=== PATIENT | female | born 1960 | race Caucasian/White ===

== ENCOUNTER 2018-02-22 04:11 | Inpatient (IN) | payer OTHER, SELFPAY ==
[2018-02-22] VITALS (11 sets, daily range): BP systolic 84–122; BP diastolic 52–73; PULSE 83–108; RESP 16–23; TEMP 37.2–38.4; O2SAT 92–100; BMI 48.0; BMI 48.6; BMI 48.7
[2018-02-22 04:38] LABS: Absolute Lymphocyte Count 1.02 X10^3/ul (0.83-4.51); Absolute Neutrophil Count 12.2 X10^3/uL (2.0-7.7); Basophil# 0.02 X10^3/uL; Basophil% 0.1 % (0-1); Eosinophil# 0.06 X10^3/uL; Eosinophils% 0.4 % (0-5); Hematocrit 33.7 % (37-47); Hemoglobin 11.3 g/dl (12.0-15.0); Lymphocyte # 1.02 X10^3/ul (4.0); Lymphocyte % 7.2 % (19-41); Mean Corp Hgb Conc 33.5 g/gl (32-36); Mean Corpuscular Hgb 29.2 pg (27.0-32.0); Mean Corpuscular Volume 87.1 fL (81-99); Mean Platelet Vol. 10.5 fl (6.2-12.0); Monocyte# 0.85 X10^3/uL; Neutrophil % 86.1 % (47-70); POSITIVE COUNT NO; POSITIVE DIFFERENTIAL NO; POSITIVE MORPHOLOGY NO; Platelet Count 215 K/mm3 (150-450); RBC Distribution Width CV 14.2 % (11.6-14.6); Red Blood Count 3.87 M/mm3 (4.2-5.4); White Blood Count 14.2 K/mm3 (4.4-11.0)
[2018-02-22 04:43] LABS: International Normalized Ratio 1.1; Prothrombin Time (Protime)PT. 13.7 SECONDS (11.7-14.9)
[2018-02-22 04:51] LABS: ALB/GLOB Ratio 1.1 RATIO (0.9-2.4); AST(SGOT) 21 U/L (15-37); Alanine Aminotransfer ALT/SGPT 24 U/L (13-56); Albumin, Serum 3.6 g/dL (3.2-5.0); Alkaline Phosphatase 42 U/L (45-117); Anion Gap 8 (5-15); BUN 23 mg/dL (7-18); Calcium,Total 9.2 mg/dL (8.5-10.1); Chloride 101 mmol/L (98-107); Creatinine, Serum 0.85 mg/dL (0.55-1.02); EST Glomerular Filtration Rate 73 mL/min (>60); Est Glom Filt Rate - Afr Amer 89 mL/min (>60); Estimated Creatinine Clearance 69.18 ml/min; Globulin 3.3 g/dL (2.2-4.2); Glucose 113 mg/dL (74-106); Potassium 3.3 mmol/L (3.5-5.1); Protein, Total 6.9 g/dL (6.4-8.2); Sodium Level 138 mmol/L (136-145)
[2018-02-22] MEDS: 0.9% Normal Saline 1,000 ML 1000 ML IV ×3 (04:51→07:41)
[2018-02-22 05:03] LABS: Partial Thromboplast Time 28.3 Seconds (24.1-36.2)
--- NOTE | 2018-02-22 06:12 | CT_ITS ---
STUDY: CT ABDOMEN AND PELVIS WITH CONTRAST REASON FOR EXAM: Female, 57 years old. Bleeding from rectum times several months. Nausea, vomiting. RADIATION DOSAGE (If Supplied By Facility): CTDIvol = ( 18.33 ) mGy, DLP = ( 1475.02 ) mGycm TECHNIQUE: Transaxial 3.75 mm images were obtained from the dome of the diaphragm to the symphysis pubis without oral contrast. 100 ml of Isovue 300 contrast was administered. Sagittal and coronal images were reconstructed. There is obesity, the entirety of soft tissue is not imaged. Individualized dose optimization techniques were used for this CT. COMPARISON: None. FINDINGS: The visualized lung bases are unremarkable. The visualized portions of the heart are within normal limits. There is decreased attenuation of the enlarged liver consistent with steatosis. Liver measures more and 20 cm craniocaudal. Right hepatic 0.7 and 1 cm low-attenuation is too small to characterize image 26 and 47 series 2.. Normal gallbladder and extrahepatic biliary system. There is mild splenomegaly. There is accessory splenic tissue. Normal pancreas. Normal bilateral adrenal glands. Bilateral slightly heterogeneous nephrogram. Low attenuation changes within the right inferior renal cortex of 1 cm, 0.6 cm and the left inferior renal pole cortex, posterior left mid kidney 1.2 cm and upper pole 1.4 x 1.3 cm are indeterminate. Normal visualized stomach. Normal small intestine. Anal/distal rectal wall thickening. Perirectal 1.9 cm lymph node. Moderate amount of retained fecal material. Otherwise normal colon. The appendix is visualized and appears normal. Image 81-91 series 2. Normal abdominal aorta. Normal inferior vena cava. Normal retroperitoneum shotty nonenlarged retroperitoneal lymph nodes.. Normal urinary bladder. Uterus is to the left off pelvic midline and appears prominent in size, there is a suspicion for an anterior uterine body fibroid. Right inguinal lymphadenopathy 1.9 x 2.6 cm with additional smaller bilateral inguinal lymph nodes. There are degenerative changes of the visualized lumbar spine particularly along the facet joints. CT/Abdomen/Pelvis W IV Cont ONLY IMPRESSION: 1. Wall thickening and edema involving the anus and distal rectum with perirectal lymph nodes. This may be due to an inflammatory/infectious process, other a child she such as neoplasm is not excluded. 2. Right inguinal lymphadenopathy and bilateral inguinal lymphoid hyperplasia. 3. Hepatic steatosis, hepatomegaly, mild splenomegaly. 4. Low attenuation changes within the liver and kidneys are indeterminate. This can be verified with ultrasound. 5. Heterogeneous bilateral nephrograms may be due to a technical factors. No focal defects to suggest pyelonephritis detected. 6. Fibroid uterus. 7. Degenerative changes. Electronically Signed: Tangela Washburn MD at 7:33 EDT , Service support ,
[2018-02-22 06:27] LABS: Bacteria 0 SEEN /hpf (None Seen); Mucous, Urine 0 SEEN /hpf (<or=2+); White Blood Cells 0 SEEN /hpf (0-5)
[2018-02-22 06:46] LABS: Color, Urine Yellow (Yellow); Glucose, Dipstick Normal (Normal); Ketone-Dipstick Negative (Negative); Leukocyte Esterase-Dipstick 25 /ul (Negative); Nitrite-Dipstick Negative (Negative); Occult Blood-Urine 150 /ul (Negative); Protein-Dipstick 30 mg/dl (Negative); Specific Gravity, Urine 1.015 (1.002-1.030); Urine Bilirubin Dipstick Negative (Negative); Urine Clarity Clear (Clear); Urine Urobilinogen Normal (Normal)
[2018-02-22 06:53] LABS: Red Blood Cells-Urine 0-5 SEEN /hpf (0-5); Squamous Epithelial Cells - UA 5-10 SEEN /hpf (5-10)
[2018-02-22 06:58] LABS: Lactic Acid 1.5 mmol/L (0.4-2.0)
--- NOTE | 2018-02-22 07:24 | ED.DCSUM_ITS ---
- ER Visit Summary Date of Service: 02/22/18 Chief Complaint: Hemorrhoids History of Present Illness: The patient is a 57 F with hemorrhoids over the past month and a half. She has been having increasing pain and has been passing bright red blood and blood clots in the toilet with bowel movements. This has been getting worse. She saw a nurse practitioner at her primary care doctor's office who referred her to a GI nurse practitioner. She has not seen the GI nurse practitioner for hemorrhoids yet. She does not take blood thinners. She said she did have a colonoscopy within the past year which she says was unremarkable. She has a history of high blood pressure and high cholesterol. She has associated chills but no fever. Physical Examination: Blood pressure 94/57 and heart rate 100. Afebrile at 99. Patient appears uncomfortable but not toxic or in distress. Heart regular. Lungs clear. Abdomen soft and nontender. Chaperoned rectal exam shows multiple internal hemorrhoids. Minimal tenderness. Bright red blood is noted. No pus or mucus noted. Skin appears normal. Test Results: White count 14.2 and hemoglobin 11.3. Hemoglobin was 13 several months ago. Potassium 3.3, glucose 113, and BUN 23. Alk phos 42. Coags normal. Lactate 1.5 and urinalysis unremarkable. Emergency Department Course and Treatment: Patient received fluids. Her vitals did not change much. Her labs resulted and her white count was elevated, concerning for sepsis picture. I would not expect hemorrhoids to cause this. Will check a CT. I added on a urinalysis, lactate, and blood cultures. Cultures pending. Lactate 1.5. Urinalysis unremarkable. CT is pending. The oncoming doctor will check the CT results. If normal and the patient has normal vital signs and improve symptoms, she may go home. If equivocal or if she has continued abnormal vital signs or severe symptoms, she may benefit from hospital observation. Results pending. Plan was discussed with the patient. Treatment Plan: As above Disposition: Need further evaluation Impression: 1. Hemorrhoids 2. GI bleeding, likely secondary to hemorrhoids 2. SIRS criteria This note was generated with [employer]rics[employer] software. It may contain incorrect words, spelling, and punctuation that were not noted in review of the chart prior to signing ED Disposition - Plan for ED Patient: Chief Complaint: GI Bleed Referrals: Mehul Powers MD [Primary Care Provider] -
[2018-02-22] MEDS: fentaNYL 100 MCG/2 ML Ampul 25 MCG IV (07:41)
--- NOTE | 2018-02-22 07:51 | NURSING ---
DR MELANIE CHRISTINA
--- NOTE | 2018-02-22 07:55 | PCM.HP.STD ---
Problem List (1) Rectal bleed Status: Acute (2) Essential (primary) hypertension Status: Chronic (3) Dyslipidemia Status: Chronic (4) Gout Status: Chronic (5) BMI 45.0-49.9, adult Status: Chronic History of Present Illness Date of Admission: 02/22/18 Chief Complaint: Rectal bleed The patient is a 57 year old F with past medical history cigar for essential hypertension, dyslipidemia who presented with rectal pain. Patient has had pain for almost 6 weeks. Patient has also noticed intermittent fresh red blood in her stool patient reports having had a colonoscopy in August [address] [facility] which was negative for any mass. Did experience excruciating pain on the morning of admission subsequently made a decision to present to the ED. In the emergency department imaging studies obtained demonstrated Wall thickening and edema involving the anus and distal rectum with perirectal lymph nodes. An assessment of acute proctitis was made started on antibiotic therapy and admitted to regular nursing floor Past Medical History Past Medical History (Chronic Problems): Chronic Problems Essential (primary) hypertension (Chronic) Dyslipidemia (Chronic) Gout (Chronic) BMI 45.0-49.9, adult (Chronic) Allergies Penicillins Allergy (Verified 02/22/18 04:15) Rash Home Medications: Ambulatory Orders Medication Instructions Recorded Allopurinol [Zyloprim] 300 mg PO DAILY 02/22/18 Cholecalciferol (Vitamin D3) 3,000 unit PO DAILY 02/22/18 [Vitamin D3] Hydrochlorothiazide [Hctz] 25 mg PO DAILY 02/22/18 Lisinopril [Zestril] 40 mg PO BID 02/22/18 Simvastatin [Zocor] 20 mg PO QHS 02/22/18 Smoking Status: Never smoker - *Family History Maternal History Items: Cancer Review of Systems Constitutional: Denies: Anorexia, Chills, Fever, Night Sweats, Weight Change HEENT: Denies: Head Aches, Sinus Congestion, Sinus Drainage Cardiovascular: Denies: Chest Pain, Orthopnea, Palpitations, Paroxysmal Noc. Dyspnea Respiratory: Denies: Cough, Shortness of breath at rest, Shortness of breath upon exertion, Sputum production Gastrointestinal: Reports: Hematochezia. Denies: Abdominal Pain, Hematemesis Genitourinary: Denies: Dysuria, Frequency, Hematuria, Urgency Musculoskeletal: Denies: Joint Pain, Joint Tenderness Skin: Denies: Rash Neurological: Denies: Focal weakness, Numbness, Tingling Psychiatric: Denies: Homicidal Ideations, Suicidal Ideations Hematologic/ Lymphatic: Denies: Easy Bruising, Easy Bleeding VTE Information - Inpt Only VTE Present on Admission: No VTE Mechan Device Prophylaxis: Knee High KAELA Hose VTE Pharm Prophylaxis ordered?: No Reason prophylaxis not ordered:: Medical Contraindication Patient Problems: Active and Suspected Problems Rectal bleed (Acute) Objective: GENERAL: cooperative HEENT: Clear conjunctiva, NECK; supple, normal thyroid, CHEST: Diminished to auscultation bilaterally, HEART: Regular S1 S2, no audible murmurs ABDOMEN: soft, non-tender, normoactive bowel sounds, EXTREMITIES: No edema, no clubbing, no cyanosis. CLAY CASTER: Awake, no lateralizing signs. SKIN: No rash - Physical Exam Vital Signs Temp Pulse Resp BP Pulse Ox 99.0 F 108 H 23 H 122/52 H 93 02/22/18 04:13 02/22/18 06:10 02/22/18 06:10 02/22/18 06:10 02/22/18 06:10 Oxygen Delivery Method Room Air Weight: 135 kg Body Mass Index (BMI) 48.0 Laboratory Tests Past 24 Hrs 02/22/18 02/22/18 02/22/18 04:24 04:24 04:24 WBC 14.2 H RBC 3.87 L Hgb 11.3 L Hct 33.7 L MCV 87.1 MCH 29.2 MCHC 33.5 RDW 14.2 RDW Differential 44.0 H Plt Count 215 MPV 10.5 Immature Gran % (Auto) 0.200 Neut % (Auto) 86.1 H Lymph % (Auto) 7.2 L [place] % (Auto) 6.0 Eos % (Auto) 0.4 Baso % (Auto) 0.1 Absolute Neuts (auto) 12.2 H Absolute Lymphs (auto) 1.02 Total Counted Not Reportable PT 13.7 INR 1.1 APTT 28.3 Sodium 138 Potassium 3.3 L Chloride 101 Carbon Dioxide 29.0 Anion Gap 8 BUN 23 H Creatinine 0.85 Estim Creat Clear Calc 69.18 Est GFR (MDRD) Af Amer 89 Est GFR (MDRD) Non-Af 73 BUN/Creatinine Ratio 27.0 H Glucose 113 H Lactic Acid Calcium 9.2 Total Bilirubin 0.70 AST 21 ALT 24 Alkaline Phosphatase 42 L Total Protein 6.9 Albumin 3.6 Globulin 3.3 Albumin/Globulin Ratio 1.1 Urine Color Urine Clarity Urine pH Ur Specific [place] Urine Protein Urine Glucose (UA) Urine Ketones Urine Occult Blood Urine Nitrite Urine Bilirubin Urine Urobilinogen Ur Leukocyte Esterase Urine RBC Urine WBC Ur Squamous Epith Cells Urine Bacteria Urine Mucus 02/22/18 02/22/18 06:20 06:25 WBC RBC Hgb Hct MCV MCH MCHC RDW RDW Differential Plt Count MPV Immature Gran % (Auto) Neut % (Auto) Lymph % (Auto) [place] % (Auto) Eos % (Auto) Baso % (Auto) Absolute Neuts (auto) Absolute Lymphs (auto) Total Counted PT INR APTT Sodium Potassium Chloride Carbon Dioxide Anion Gap BUN Creatinine Estim Creat Clear Calc Est GFR (MDRD) Af Amer Est GFR (MDRD) Non-Af BUN/Creatinine Ratio Glucose Lactic Acid 1.5 Calcium Total Bilirubin AST ALT Alkaline Phosphatase Total Protein Albumin Globulin Albumin/Globulin Ratio Urine Color Yellow Urine Clarity Clear Urine pH 6.0 Ur Specific [place] 1.015 Urine Protein 30 H Urine Glucose (UA) Normal Urine Ketones Negative Urine Occult Blood 150 H Urine Nitrite Negative Urine Bilirubin Negative Urine Urobilinogen Normal Ur Leukocyte Esterase 25 H Urine RBC 0-5 SEEN Urine WBC 0 SEEN Ur Squamous Epith Cells 5-10 SEEN Urine Bacteria 0 SEEN Urine Mucus 0 SEEN Assessment/Plan Active and Suspected Problems Rectal bleed (Acute) Patient is a 57-year-old lady presented with rectal pain and intermittent bleeding in her stool. An assessment of acute proctitis was made started on antibiotic therapy admitted to regular nursing floor for further management 1. Acute proctitis patient started on Flagyl and ciprofloxacin admitted to regular nursing floor. In addition to the antibiotic therapy patient was placed on pain medication antinausea medication and consultation placed to general surgery patient did have colonoscopy in August at [facility] [place] into the patient was negative for any mass 2. Hypertension-blood pressure controlled, home medications continued with dose adjustment as needed 3. Gout symptoms controlled on allopurinol 4. Dyslipidemia-patient is on statin therapy, continued at home dose 5. Obesity with BMI of 48.7 lifestyle modification including weight loss advised 6. Hepatic steatosis possibly from patient underlying obesity instructed to follow-up with PCP for subsequent management including possible referral to see a environment coordinator 7. DVT prophylaxis avoided the use of chemoprophylaxis in view of patient active GI bleed Clinical Impression(s) from Imaging Studies Abdomen/Pelvis CT 02/22/18 06:12 IMPRESSION: 1. Wall thickening and edema involving the anus and distal rectum with perirectal lymph nodes. This may be due to an inflammatory/infectious process, other a child she such as neoplasm is not excluded. 2. Right inguinal lymphadenopathy and bilateral inguinal lymphoid hyperplasia. 3. Hepatic steatosis, hepatomegaly, mild splenomegaly. 4. Low attenuation changes within the liver and kidneys are indeterminate. This can be verified with ultrasound. 5. Heterogeneous bilateral nephrograms may be due to a technical factors. No focal defects to suggest pyelonephritis detected. 6. Fibroid uterus. 7. Degenerative changes. Electronically Signed: Tangela Washburn MD at 7:33 EDT , Service support , Code Visit Inpatient E&M: 17080 Init Hosp L3
--- NOTE | 2018-02-22 07:58 | NURSING ---
MED SURG RECTAL BLEED AND PAIN KITTOE
[2018-02-22] MEDS: Ciprofloxacin 400 MG/200 ML BAG 200 MG IV (09:03)
[2018-02-22] MEDS: 0.9% Normal Saline 1,000 ML 150 ML IV (10:48)
[2018-02-22] MEDS: Allopurinol 300 MG Tablet PO (11:38)
[2018-02-22] MEDS: Lisinopril 40 MG Tablet PO (11:38)
[2018-02-22] MEDS: hydroCHLOROthiazide 25 MG Tablet PO (11:38)
[2018-02-22 13:10] LABS: Internal QC Validated? YES +Cl - CLEAR BKGD; Pregnancy, Urine Negative Negative
--- NOTE | 2018-02-22 14:38 | PCM.CONS.B ---
- Consult Date of Consult: 02/22/18 - Reason for Consult Chief Complaint: perianal pain rectal bleeding History of Present Illness: 57 y/o obese WF presents with perianal pain. Patient has had pain for almost 6 weeks. Patient has also noticed intermittent fresh red blood in her stool patient reports having had a colonoscopy in August 2017 at [facility] which was negative for any mass. Did experience excruciating pain on the morning of admission subsequently made a decision to present to the ED. In the emergency department imaging studies obtained demonstrated wall thickening and edema involving the anus and distal rectum with perirectal lymph nodes. An assessment of acute proctitis was made started on antibiotic therapy and admitted to regular nursing floor I examined patient, and was concerned for perianal/perirectal abscess. Patient has family history of colon cancer, parent of colorectal cancer at age 48. Past Medical History: hypertension morbid obesity Past Surgical History: renal biopsy mandibular and nasal fracture Medications: allopurinol vitamin D HCTZ lisinopril zocor Allergies: penicillins Social history: TOB use denies Review of Systems: General - has had fevers Cardiovascular denies chest pain Pulmonary has shortness of breath with exertion, denies coughing up blood Gastrointestinal as per HPI, has been having rectal bleeding, has lifelong chronic constipation Neurological denies seizures Genitourinary denies burning with urination, denies blood in urine Hematological denies spontaneous/prolonged bleeding Skin denies open nonhealing wounds Musculoskeletal denies arthritis Endocrine denies diabetes, is morbidly obese Psychological denies hallucinations Physical examination: Vital signs Temp 99.5F RR 18 BP 120/61 General WD/WN WF in no apparent distress, alert and oriented, not septic appearing HEENT Normocephalic. EOM intact with sclera clear and no icterus noted. Neck is supple with no jugular venous distention noted. Trachea is midline. Lungs clear to auscultation. normal breath sounds. No rales/rhonchi/wheezing noted. No labored breathing noted, such as retractions. Heart normal S1 and S2 auscultated. No rubs/clicks/murmurs noted. Normal size and location by auscultation. Abdomen soft and benign and obese. Normal bowel sounds. Difficult to determine if any masses due to body habitus Extremities no calf tenderness noted. . Genitourinary/Rectal edema and inflammation of right side of perianal area, purulent and bloody discharge Skin normal skin integrity. Neurological no focal deficits noted Psychological normal affect, patient is calm and appropriate WBC 14.2K with left shift of differential Impression: suspect perianal/perirectal abscess Discussion/Plan: I have discussed the above with the patient. I have offered the patient the procedure of incision and drainage of perianal/perirectal abscess. I have explained the procedure to the patient. I have counseled the patient as to the risks of the procedure, including but not limited to: infection, bleeding, injury to any blood vessels/nerves, recurrence of disease by nature of disease, complications of anesthesia, postoperative pneumonia/cardiac problems/blood clots etc. the patient understands. Patient agrees to proceed. I have answered all questions to the patients satisfaction and the patient has no further questions.
--- NOTE | 2018-02-22 15:01 | CON.PCM_ITS ---
- Consult Date of Consult: 02/22/18 - Reason for Consult Chief Complaint: perianal pain rectal bleeding History of Present Illness: 57 y/o obese WF presents with perianal pain. Patient has had pain for almost 6 weeks. Patient has also noticed intermittent fresh red blood in her stool patient reports having had a colonoscopy in August 2017 at [facility] which was negative for any mass. Did experience excruciating pain on the morning of admission subsequently made a decision to present to the ED. In the emergency department imaging studies obtained demonstrated wall thickening and edema involving the anus and distal rectum with perirectal lymph nodes. An assessment of acute proctitis was made started on antibiotic therapy and admitted to regular nursing floor I examined patient, and was concerned for perianal/perirectal abscess. Patient has family history of colon cancer, parent of colorectal cancer at age 48. Past Medical History: hypertension morbid obesity Past Surgical History: renal biopsy mandibular and nasal fracture Medications: allopurinol vitamin D HCTZ lisinopril zocor Allergies: penicillins Social history: TOB use denies Review of Systems: General - has had fevers Cardiovascular denies chest pain Pulmonary has shortness of breath with exertion, denies coughing up blood Gastrointestinal as per HPI, has been having rectal bleeding, has lifelong chronic constipation Neurological denies seizures Genitourinary denies burning with urination, denies blood in urine Hematological denies spontaneous/prolonged bleeding Skin denies open nonhealing wounds Musculoskeletal denies arthritis Endocrine denies diabetes, is morbidly obese Psychological denies hallucinations Physical examination: Vital signs Temp 99.5F RR 18 BP 120/61 General WD/WN WF in no apparent distress, alert and oriented, not septic appearing HEENT Normocephalic. EOM intact with sclera clear and no icterus noted. Neck is supple with no jugular venous distention noted. Trachea is midline. Lungs clear to auscultation. normal breath sounds. No rales/rhonchi/ wheezing noted. No labored breathing noted, such as retractions. Heart normal S1 and S2 auscultated. No rubs/clicks/murmurs noted. Normal size and location by auscultation. Abdomen soft and benign and obese. Normal bowel sounds. Difficult to determine if any masses due to body habitus Extremities no calf tenderness noted. . Genitourinary/Rectal edema and inflammation of right side of perianal area, purulent and bloody discharge Skin normal skin integrity. Neurological no focal deficits noted Psychological normal affect, patient is calm and appropriate WBC 14.2K with left shift of differential Impression: suspect perianal/perirectal abscess Discussion/Plan: I have discussed the above with the patient. I have offered the patient the procedure of incision and drainage of perianal/ perirectal abscess. I have explained the procedure to the patient. I have counseled the patient as to the risks of the procedure, including but not limited to: infection, bleeding, injury to any blood vessels/nerves, recurrence of disease by nature of disease, complications of anesthesia, postoperative pneumonia/cardiac problems/blood clots etc. the patient understands. Patient agrees to proceed. I have answered all questions to the patient?s satisfaction and the patient has no further questions.
--- NOTE | 2018-02-22 15:15 | NURSING ---
called report to AC at this time.
--- NOTE | 2018-02-22 17:22 | PCM.IMDPSTOP ---
Immediate Post-Op Note Date of Procedure: 02/22/18 Primary Surgeon/Physician: Fannie Perkins chair spring assembler: NOT,DEFINED Pre-Operative Diagnosis: perianal/perirectal abscess Post-Operative Diagnosis: perforated rectum, rectal mass Surgery/Procedure Performed:: examination under anesthesia Description of Surgical Findings:: rectal perforation into side wall, right laterally, just proximal to anal canal with surrounding dense tissue/mass that extends posteriorly and proximally about 7 cm, hematoma in the side wall pocket at site of perforation Estimated Blood Loss: 30 Specimen's removed: none Type of Anesthesia:: General ASA Class: ASA3 Plus Emergency - Admit VTE Documentation VTE Present on Admission: Yes VTE Mechan Device Prophylaxis: SCD's
--- NOTE | 2018-02-22 17:25 | OP.PN_ITS ---
Immediate Post-Op Note Date of Procedure: 02/22/18 Primary Surgeon/Physician: Fannie Perkins epic cupid specialists: NOT,DEFINED Pre-Operative Diagnosis: perianal/perirectal abscess Post-Operative Diagnosis: perforated rectum, rectal mass Surgery/Procedure Performed:: examination under anesthesia Description of Surgical Findings:: rectal perforation into side wall, right laterally, just proximal to anal canal with surrounding dense tissue/mass that extends posteriorly and proximally about 7 cm, hematoma in the side wall pocket at site of perforation Estimated Blood Loss: 30 Specimen's removed: none Type of Anesthesia:: General ASA Class: ASA3 Plus Emergency - Admit VTE Documentation VTE Present on Admission: Yes VTE Mechan Device Prophylaxis: SCD's
--- NOTE | 2018-02-22 17:25 | PCM.OPRPT ---
Report of Operation Date of Procedure: 02/22/18 Pre-Operative Diagnosis: perianal/perirectal abscess Post-Operative Diagnosis: perforated rectum, rectal mass Surgery/Procedure Performed:: examination under anesthesia Description of Surgical Findings:: rectal perforation into side wall, right laterally, just proximal to anal canal with surrounding dense tissue/mass that extends posteriorly and proximally about 7 cm, hematoma in the side wall pocket at site of perforation academic guidance specialist: NOT,DEFINED Type of Anesthesia:: General Anesthesiologist: Morgan Carballo Specimen's removed: none Estimated Blood Loss (mL): 30 Fluids Replaced: see anesthesia note Description of Procedure: After informed consent was obtained, the patient was brought into the operating room. Appropriate time out protocol was followed. Patient was then placed under anesthesia. Patient was placed in the modified lithotomy position with appropriate padding to all pressure areas. The perineum was prepped with a betadyne surgical sterile skin preparation. Appropriate sterile surgical drapes were placed. Examination was done under anesthesia. Digital examination revealed rectal perforation, right laterally, just proximal to the anal canal. In this pocket, there was a large hematoma into the soft tissue. Surrounding the perforation, there was dense hard tissue, this extended posteriorly and then proximally about 7-8 cm but was not circumferential. This could not be visualized directly. No further examination was done, as it was determined that patient will require transfer to a larger medical facility. The patient was then extubated and brought to the Recovery Room in stable condition. - Complications none noted - Admit VTE Documentation VTE Present on Admission: Yes VTE Mechan Device Prophylaxis: SCD's
--- NOTE | 2018-02-22 18:14 | NURSING ---
called Devang to inform him that transport would be coming in 15-20 minutes to [facility] patient.
--- NOTE | 2018-02-22 18:39 | NURSING ---
called report to Michelle at [facility] at this time. Pt transferred off floor at [id number].
--- NOTE | 2018-02-23 07:07 | PCM.DC.SUM ---
Discharge Date and Diagnosis Date of Admission: 02/22/18 Date of Discharge: 02/22/18 - Primary Discharge Diagnosis Rectal mass with perforation - Secondary Discharge Diagnosis Chronic Problems Essential (primary) hypertension (Chronic) Dyslipidemia (Chronic) Gout (Chronic) BMI 45.0-49.9, adult (Chronic) Hospital Course and Treatment Imaging Results: Date of Procedure: 02/22/18 Pre-Operative Diagnosis: perianal/perirectal abscess Post-Operative Diagnosis: perforated rectum, rectal mass Surgery/Procedure Performed:: examination under anesthesia Description of Surgical Findings:: rectal perforation into side wall, right laterally, just proximal to anal canal with surrounding dense tissue/mass that extends posteriorly and proximally about 7 cm, hematoma in the side wall pocket at site of perforation Summary of Care Provided: Patient is a 57-year-old lady presented with rectal pain and intermittent bleeding in her stool. An assessment of acute proctitis was made started on antibiotic therapy admitted to regular nursing floor for further management 1. Acute proctitis patient started on Flagyl and ciprofloxacin admitted to regular nursing floor. In addition to the antibiotic therapy patient was placed on pain medication antinausea medication and consultation placed to general surgery patient did [facility] the patient was negative for any mass consultation was placed to Dr. Fannie Perkins with general surgery who did perform examination under anesthesia findings included; rectal perforation into side wall, right laterally, just proximal to anal canal with surrounding dense tissue/mass that extends posteriorly and proximally about 7 cm, hematoma in the side wall pocket at site of perforation based on above Dr. Gregorio Churchill for patient to be transferred to [facility] 2. Hypertension-blood pressure controlled, home medications continued with dose adjustment as needed 3. Gout symptoms controlled on allopurinol 4. Dyslipidemia-patient is on statin therapy, continued at home dose 5. Obesity with BMI of 48.7 lifestyle modification including weight loss advised 6. Hepatic steatosis possibly from patient underlying obesity instructed to follow-up with PCP for subsequent management including possible referral to see a residency director 7. DVT prophylaxis avoided the use of chemoprophylaxis in view of patient active GI bleed Home Medications: Medications to take at Discharge Allopurinol [Zyloprim] 300 mg PO DAILY 02/22/18 Cholecalciferol (Vitamin D3) [Vitamin D3] 3,000 unit PO DAILY 02/22/18 Hydrochlorothiazide [Hctz] 25 mg PO DAILY 02/22/18 Lisinopril [Zestril] 40 mg PO BID 02/22/18 Simvastatin [Zocor] 20 mg PO QHS 02/22/18 Primary Care Physician: Mehul Powers MD [Primary Care Provider] - Disposition: [facility] Minutes spent on discharge:: 45 Patient Condition:: Stable Medical Necessity - Tobacco Use Smoking Status: Never smoker Meaningful Use Info Meaningful Use Diagnoses (Choose all that apply): None applicable Code Visit OBSV E&M: 71651 Observ/hosp same date L3
== END 2018-02-22 18:42 | disposition short-term general hospital (02) | DRG 393 ==
LOC: ED 05:09 → MS3 08:04
PROVIDERS: Anesthesiology; Surgery; Admitting Provider Internal Medicine; Emergency Provider Emergency Medicine; Family Provider Internal Medicine; PCP Internal Medicine; Visit Provider Internal Medicine
PROC: 0DJDXZZ Inspection of Lower Intestinal Tract, External Approach (ICD-10-PCS; principal; 2018-02-22 16:15)
DX: K62.89 Other specified diseases of anus and rectum (principal); K63.1 Perforation of intestine (nontraumatic); K61.1 Rectal abscess; Z68.42 Body mass index [BMI] 45.0-49.9, adult; I10 Essential (primary) hypertension; K64.8 Other hemorrhoids; E78.5 Hyperlipidemia, unspecified; M10.9 Gout, unspecified; E66.9 Obesity, unspecified; Z71.3 Dietary counseling and surveillance; K76.0 Fatty (change of) liver, not elsewhere classified; R19.09 Other intra-abdominal and pelvic swelling, mass and lump
CPT/HCPCS: 74177; 80053; 81001; 81025; 83605; 85025; 85610; 85730; 87040; 99285; J7030; Q9967; J0744

== ENCOUNTER 2018-05-28 15:04 | Emergency (ER) | payer OTHER, SELFPAY ==
[2018-05-28 15:07] VITALS: BP 82/56; PULSE 109; RESP 18; TEMP 36.7; O2SAT 92; BMI 43.9
--- NOTE | 2018-05-28 15:40 | CT_ITS ---
STUDY: CT BRAIN WITHOUT CONTRAST REASON FOR EXAM: Female, 57 years old. Headache. Rectal melanoma. RADIATION DOSAGE (If Supplied By Facility): CTDIvol = ( 44.99 ) mGy, DLP = ( 762.36 ) mGycm TECHNIQUE: Transaxial CT imaging of the brain was performed without administration of intravenous contrast material. Individualized dose optimization techniques were used for this CT. COMPARISON: None. FINDINGS: Normal soft tissue structures. Normal calvarium. There are findings consistent with widespread hyperdense metastases throughout the brain. These are seen throughout the cerebral hemispheres bilaterally, and in both cerebellar hemispheres. The largest is in the left cerebellar hemisphere and measures 2.7 cm. It has very little if any significant mass effect or edema. In the cerebral hemispheres individual lesions measure from a few millimeters such as in the vertex of the left cerebral hemisphere, to as much as 1.6 cm in the right frontal lobe. Some of the larger lesions may have necrotic centers which are lower density. No significant mass effect is seen related to any of the lesions. There is no evidence for midline shift or herniation. The pedicles are symmetric. Midline is not shifted. No definite hemorrhage or acute infarction. Normal skull, orbits and sinuses. CT/Brain/Head without Contrast IMPRESSION: Very numerous hyperdense metastases throughout the brain consistent with metastatic melanoma. Little if any significant edema or mass effect. N.B. : The above information has been verbally conveyed by Lenard Boyd MD to Dr. Pavel Hernandez , Referring Physician, on 05/28/2018 17:17:28 (ET). Electronically Signed: Lenard Boyd MD at 16:59 EDT , Service support ,
--- NOTE | 2018-05-28 15:43 | ED.VIS.GEN ---
History of Present Illness Chief Complaint: Hypotension Informant: Patient, - - RN for hem-onc Onset: Yesterday Context: Gradual Onset Timing: Continuous Narrative: Patient has metastatic melanoma unknown stage, she finished a few months of chemotherapy couple months ago, and last week started immunotherapy. She is following with Dr. Austin with hematology-oncology in [place] with [facility], who called to discuss her case today prior to her arrival. Since yesterday, she has felt headaches either bifrontal or occipital, along with nausea, fatigue/generalized weakness, and has noticed her blood pressures low. Today they were 62/39, 74/50, and she is normally 121/78, or systolics down to 110 range. She is on blood pressure medication and it was decreased relatively recently. Today, she has felt lightheaded especially when standing, better when sitting or resting. She has had blurry vision that is worse when her lightheadedness is worse. Last night she felt very cold and had chills but describes no feeling of having a fever. She has had chronic tingling in her toes and states in the past week that is of actually been better. She denies any focal neurologic abnormalities in the last 2 days. No chest discomfort or shortness of breath although she has a minor nonproductive cough. She is having less bowel movements and taking in less food. No bowel movement yesterday or today, she normally goes daily. She is urinating less as well but states she is trying to drink plenty of water. She states she had the headaches this morning but now the headache is gone. She also states in the last couple days she has had small amounts of bright red blood per rectum, she has a history of that and by colonoscopy was diagnosed with metastatic melanoma to the rectum, so that is why she commonly has small amounts of blood, although it was gone until yesterday. She has a history of IgA nephropathy, her physicians want her blood pressure to remain under 130/80. Her oncology office also told us that they were potentially concerned about inflammation of the pituitary gland based on her symptoms of headache, nausea, blurry vision and associated with her immunotherapy. - Past Medical History (1) Metastatic melanoma Status: Chronic (2) IgA nephropathy Status: Chronic (3) Dyslipidemia Status: Chronic (4) Essential (primary) hypertension Status: Chronic Past Medical History - Allergies and Home Meds Allergies/Adverse Reactions: Allergies Penicillins Allergy (Verified 05/28/18 15:07) Rash Smoking Status: Never smoker - Family History Maternal Family History: Reports: Cancer Review of Systems All systems negative except as indicated General: Reports: Chills, Malaise Eyes: Reports: Blurred Vision - bilaterally Cardiovascular: Denies: Chest pain, Palpitations Respiratory: Reports: Cough. Denies: Dyspnea, Sputum, Orthopnea Gastrointestinal: Reports: Nausea, Hematochezia. Denies: Abdominal pain, Vomiting, Diarrhea, Melena Genitourinary: Denies: Dysuria, Hematuria, Frequency Musculoskeletal: Reports: Swelling - BLE, chronic, Extremity Pain - Both feet, recently improved. Denies: Neck pain, Back pain Skin: Denies: Rash Neurological: Reports: Headache, Parasthesia - Both feet, recently improved. Denies: Weakness Physical Exam Vital Signs/Narrative: Vital Signs Temp Pulse Resp BP Pulse Ox 05/28/18 15:07 98.1 F 109 H 18 82/56 L 92 Inital Vital Signs reviewed: Yes General: Well nourished, Well developed, Obese, - - nad Head: Normocephalic, Atraumatic Eyes: Perrl, EOMI ENT: Moist mucous membranes, No rhinorrhea. Negative for: Nasal congestion Neck: Supple, Nontender, No lymphadenopathy, No JVD Cardiovascular: Regular rate, Regular rhythm, No murmurs, Tachycardia Respiratory: No distress, CTA bilaterally, Chest nontender Abdomen: Soft, Nontender, Nondistended, Normal bowel sounds Back: Nontender, Normal Inspection. Negative for: CVA tenderness Extremities: Nontender, Edema - 1+ BLE, symmetric Skin: Normal color, No rash Neurological: Alert, Oriented x3, Cranial nerves II-XII grossly intact, Normal Strength, Normal Sensation Psychological: Normal affect Diagnostic/Tx/Re-eval Impressions Brain CT 05/28/18 15:40 IMPRESSION: Very numerous hyperdense metastases throughout the brain consistent with metastatic melanoma. Little if any significant edema or mass effect. N.B. : The above information has been verbally conveyed by Lenard Boyd MD to Dr. Pavel Hernandez , Referring Physician, on 05/28/2018 17:17:28 (ET). Electronically Signed: Lenard Boyd MD at 16:59 EDT , Service support , Chest X-Ray 05/28/18 16:30 IMPRESSION: Normal x-ray examination of the chest. Electronically Signed: Lenard Boyd MD at 17:00 EDT , Service support , 05/28/18 15:40 Brain/Head without Contrast [CT] Stat 05/28/18 16:30 Chest PA and Lateral [RAD] Stat Laboratory Results 05/28/18 05/28/18 05/28/18 Range/Units 15:55 15:55 15:55 WBC 3.6 L (4.4-11.0) K/mm3 RBC 4.07 L (4.2-5.4) M/mm3 Hgb 11.1 L (12.0-15.0) g/dl Hct 35.1 L (37-47) % MCV 86.2 (81-99) fL MCH 27.3 (27.0-32.0) pg MCHC 31.6 L (32-36) g/gl RDW 17.3 H (11.6-14.6) % RDW Differential 54.5 H (35.1-43.9) fl Plt Count 119 L (150-450) K/mm3 MPV 10.6 (6.2-12.0) fl Immature Gran % (Auto) 0.000 (0.0-0.9) % Neut % (Auto) 60.1 (47-70) % Lymph % (Auto) 30.5 (19-41) % [place] % (Auto) 6.9 (0-10) % Eos % (Auto) 1.1 (0-5) % Baso % (Auto) 1.4 H (0-1) % Absolute Neuts (auto) 2.2 (2.0-7.7) X10^3/uL Absolute Lymphs (auto) 1.10 (0.83-4.51) X10^3/ul Total Counted Not Reportable Sodium 137 (136-145) mmol/L Potassium 3.3 L (3.5-5.1) mmol/L Chloride 95 L (98-107) mmol/L Carbon Dioxide 30.0 (21.0-32.0) mmol/L Anion Gap 12 (5-15) BUN 33 H (7-18) mg/dL Creatinine 2.52 H (0.55-1.02) mg/dL Estim Creat Clear Calc 24.24 ml/min Est GFR (MDRD) Af Amer 25 L (>60) mL/min Est GFR (MDRD) Non-Af 21 L (>60) mL/min BUN/Creatinine Ratio 13.1 (10-20) RATIO Glucose 116 H (74-106) mg/dL Lactic Acid 1.9 (0.4-2.0) mmol/L Calcium 9.0 (8.5-10.1) mg/dL Total Bilirubin 0.30 (0.20-1.00) mg/dL AST 51 H (15-37) U/L ALT 57 H (13-56) U/L Alkaline Phosphatase 90 (45-117) U/L Troponin I < 0.015 (<0.045) ng/mL Total Protein 7.5 (6.4-8.2) g/dL Albumin 3.4 (3.2-5.0) g/dL Globulin 4.1 (2.2-4.2) g/dL Albumin/Globulin Ratio 0.8 L (0.9-2.4) RATIO TSH 1.41 (0.358-3.74) uIU/mL Urine Color (Yellow) Urine Clarity (Clear) Urine pH (5.0 - 8.0) Ur Specific [place] (1.002-1.030) Urine Protein (Negative) mg/dl Urine Glucose (UA) (Normal) mg/dl Urine Ketones (Negative) mg/dl Urine Occult Blood (Negative) /ul Urine Nitrite (Negative) Urine Bilirubin (Negative) mg/dL Urine Urobilinogen (Normal) mg/dl Ur Leukocyte Esterase (Negative) /ul Urine RBC (0-5) /hpf Urine WBC (0-5) /hpf Ur Squamous Epith Cells (5-10) /hpf Urine Bacteria (None Seen) /hpf Urine Mucus (<or=2+) /hpf 05/28/18 Range/Units 17:15 WBC (4.4-11.0) K/mm3 RBC (4.2-5.4) M/mm3 Hgb (12.0-15.0) g/dl Hct (37-47) % MCV (81-99) fL MCH (27.0-32.0) pg MCHC (32-36) g/gl RDW (11.6-14.6) % RDW Differential (35.1-43.9) fl Plt Count (150-450) K/mm3 MPV (6.2-12.0) fl Immature Gran % (Auto) (0.0-0.9) % Neut % (Auto) (47-70) % Lymph % (Auto) (19-41) % [place] % (Auto) (0-10) % Eos % (Auto) (0-5) % Baso % (Auto) (0-1) % Absolute Neuts (auto) (2.0-7.7) X10^3/uL Absolute Lymphs (auto) (0.83-4.51) X10^3/ul Total Counted Sodium (136-145) mmol/L Potassium (3.5-5.1) mmol/L Chloride (98-107) mmol/L Carbon Dioxide (21.0-32.0) mmol/L Anion Gap (5-15) BUN (7-18) mg/dL Creatinine (0.55-1.02) mg/dL Estim Creat Clear Calc ml/min Est GFR (MDRD) Af Amer (>60) mL/min Est GFR (MDRD) Non-Af (>60) mL/min BUN/Creatinine Ratio (10-20) RATIO Glucose (74-106) mg/dL Lactic Acid (0.4-2.0) mmol/L Calcium (8.5-10.1) mg/dL Total Bilirubin (0.20-1.00) mg/dL AST (15-37) U/L ALT (13-56) U/L Alkaline Phosphatase (45-117) U/L Troponin I (<0.045) ng/mL Total Protein (6.4-8.2) g/dL Albumin (3.2-5.0) g/dL Globulin (2.2-4.2) g/dL Albumin/Globulin Ratio (0.9-2.4) RATIO TSH (0.358-3.74) uIU/mL Urine Color Yellow (Yellow) Urine Clarity Turbid (Clear) Urine pH 5.0 (5.0 - 8.0) Ur Specific [place] 1.030 (1.002-1.030) Urine Protein 100 H (Negative) mg/dl Urine Glucose (UA) Normal (Normal) mg/dl Urine Ketones 5 H (Negative) mg/dl Urine Occult Blood 250 H (Negative) /ul Urine Nitrite Negative (Negative) Urine Bilirubin 3 H (Negative) mg/dL Urine Urobilinogen 1 H (Normal) mg/dl Ur Leukocyte Esterase 100 H (Negative) /ul Urine RBC 5-10 SEEN (0-5) /hpf Urine WBC 0-5 SEEN (0-5) /hpf Ur Squamous Epith Cells 10-25 SEEN (5-10) /hpf Urine Bacteria 4+ (None Seen) /hpf Urine Mucus 0 SEEN (<or=2+) /hpf - Rhythm Strip Rhythm Strip: Sinus Tach Rate: 108 Ectopy: None - EKG Initial EKG Interpretation: No Acute Injury Pattern, Sinus Tachycardia, - - nml axis and intervals - Medical Decision Making Labs show acute renal failure, lactate, TSH, white blood count all within normal limits. She is not especially anemic. No sign of a definite UTI or pneumonia. Blood pressure has been fairly stable although there were some numbers in the 80s, the majority of her numbers have been in the 90s and between 100-110. With orthostatics, lying she was in the 80s but with sitting and standing she was over 100 systolic. She was given slow IV fluids. Her pulse ox was around 90, however when I reevaluated her and she was resting/sleeping, her pulse ox was 98% on room air. Chest x-ray unremarkable. CT of the head shows multiple metastatic lesions everywhere without significant edema or mass-effect. I discussed with her oncologist, Dr. Austin, who states this is certainly worse than the 1 or 2 spots in the brain she had last time she was checked, and with her creatinine now 2.5 in context of her IgA nephropathy, recommends that she be transferred to [facility] where her oncology team and other specialists can further evaluate her and determine the best course. Discussed with the patient, she is amenable to this plan. Accepted by Dr. Kruger to [facility]. ED Disposition - Plan for ED Patient: Disposition: [facility] - Main Chief Complaint: Hypotension Diagnosis: Acute renal failure, IgA nephropathy, Malignant melanoma metastatic to brain
[2018-05-28 16:12] VITALS: BP 98/56; PULSE 111; RESP 25; O2SAT 95
[2018-05-28 16:16] LABS: Absolute Neutrophil Count 2.2 X10^3/uL (2.0-7.7); Basophil# 0.05 X10^3/uL; Basophil% 1.4 % (0-1); Eosinophil# 0.04 X10^3/uL; Eosinophils% 1.1 % (0-5); Hematocrit 35.1 % (37-47); Hemoglobin 11.1 g/dl (12.0-15.0); Lymphocyte % 30.5 % (19-41); Mean Corp Hgb Conc 31.6 g/gl (32-36); Mean Corpuscular Hgb 27.3 pg (27.0-32.0); Mean Corpuscular Volume 86.2 fL (81-99); Mean Platelet Vol. 10.6 fl (6.2-12.0); Monocyte# 0.25 X10^3/uL; Monocyte% 6.9 % (0-10); Neutrophil # 2.17 X10^3/uL (2.7-7.7); Neutrophil % 60.1 % (47-70); Platelet Count 119 K/mm3 (150-450); RBC Distribution Width CV 17.3 % (11.6-14.6); RBC Distribution Width SD 54.5 fl (35.1-43.9); Red Blood Count 4.07 M/mm3 (4.2-5.4); White Blood Count 3.6 K/mm3 (4.4-11.0)
[2018-05-28 16:17] LABS: POSITIVE COUNT NO; POSITIVE DIFFERENTIAL NO; POSITIVE MORPHOLOGY NO
--- NOTE | 2018-05-28 16:30 | RAD_ITS ---
STUDY: X-RAY CHEST REASON FOR EXAM: Female, 57 years old. Hypotension and dizziness. Melanoma. TECHNIQUE: Frontal and lateral views of the chest. COMPARISON: None. FINDINGS: The lungs are clear and expanded. There is no demonstrated pleural abnormality. Normal size heart. Normal mediastinum and cyn. Normal visualized pulmonary arteries. Normal visualized aortic arch and descending thoracic aorta. Normal visualized thoracic spine. Normal visualized ribs, clavicles, and shoulders. There is no demonstrated abnormality of the visualized soft tissue structures of the upper abdomen. RAD/Chest PA and Lateral IMPRESSION: Normal x-ray examination of the chest. Electronically Signed: Lenard Boyd MD at 17:00 EDT , Service support ,
[2018-05-28 16:38] LABS: ALB/GLOB Ratio 0.8 RATIO (0.9-2.4); AST(SGOT) 51 U/L (15-37); Alanine Aminotransfer ALT/SGPT 57 U/L (13-56); Albumin, Serum 3.4 g/dL (3.2-5.0); Alkaline Phosphatase 90 U/L (45-117); Anion Gap 12 (5-15); BUN 33 mg/dL (7-18); BUN/Creat Ratio 13.1 RATIO (10-20); Chloride 95 mmol/L (98-107); Creatinine, Serum 2.52 mg/dL (0.55-1.02); EST Glomerular Filtration Rate 21 mL/min (>60); Est Glom Filt Rate - Afr Amer 25 mL/min (>60); Estimated Creatinine Clearance 24.24 ml/min; Globulin 4.1 g/dL (2.2-4.2); Glucose 116 mg/dL (74-106); Potassium 3.3 mmol/L (3.5-5.1); Protein, Total 7.5 g/dL (6.4-8.2); Sodium Level 137 mmol/L (136-145); Thyroid Stim Hormone (TSH) 1.41 uIU/mL (0.358-3.74)
[2018-05-28 16:56] VITALS: BP 100/67; BP 105/67; BP 87/54; PULSE 102; PULSE 116; PULSE 127
[2018-05-28 17:00] LABS: Lactic Acid 1.9 mmol/L (0.4-2.0)
[2018-05-28 17:14] VITALS: BP 94/54; PULSE 103; RESP 23; O2SAT 90
[2018-05-28 17:23] LABS: Mucous, Urine 0 SEEN /hpf (<or=2+)
[2018-05-28 17:30] LABS: Color, Urine Yellow (Yellow); Glucose, Dipstick Normal (Normal); Ketone-Dipstick 5 mg/dl (Negative); Leukocyte Esterase-Dipstick 100 /ul (Negative); Nitrite-Dipstick Negative (Negative); Occult Blood-Urine 250 /ul (Negative); Protein-Dipstick 100 mg/dl (Negative); Urine Clarity Turbid (Clear); Urine Urobilinogen 1 mg/dl (Normal)
[2018-05-28 17:40] LABS: Urine Bilirubin Dipstick 3 mg/dL (Negative)
[2018-05-28 17:43] LABS: White Blood Cells 0-5 SEEN /hpf (0-5)
[2018-05-28 17:44] LABS: Bacteria 4+ /hpf (None Seen); Red Blood Cells-Urine 5-10 SEEN /hpf (0-5); Squamous Epithelial Cells - UA 10-25 SEEN /hpf (5-10)
[2018-05-28 18:12] VITALS: BP 111/63; PULSE 105; RESP 25; O2SAT 90
[2018-05-28 19:30] VITALS: BP 102/66; PULSE 106; RESP 25; O2SAT 94
--- NOTE | 2018-05-28 20:40 | ED.RN ---
REPORT TO [facility]. PT SKIN P/W/D, RESP EVEN AND UNLABORED, PT A&O X 3, NO DISTRESS NOTED. PT OUT OF ED FOR TRANSPORT TO [facility].
== END 2018-05-28 20:40 | disposition short-term general hospital (02) ==
PROVIDERS: Emergency Provider Emergency Medicine; Family Provider Internal Medicine; PCP Internal Medicine
DX: N02.8 Recurrent and persistent hematuria with other morphologic changes (principal); N17.9 Acute kidney failure, unspecified; C79.9 Secondary malignant neoplasm of unspecified site; C79.31 Secondary malignant neoplasm of brain; E78.5 Hyperlipidemia, unspecified; I10 Essential (primary) hypertension; E66.9 Obesity, unspecified; Z79.899 Other long term (current) drug therapy
CPT/HCPCS: 70450; 71046; 80053; 81001; 83605; 84443; 84484; 85025; 87040; 93005; 99285; A4216

== ENCOUNTER 2018-06-07 19:47 | Inpatient (IN) | payer OTHER, SELFPAY ==
[2018-06-07 19:49] VITALS: BP 132/96; PULSE 87; RESP 20; TEMP 36.3; O2SAT 90; BMI 30.5
[2018-06-07] MEDS: 0.9% Normal Saline 1,000 ML 1000 ML IV (21:29)
[2018-06-07 21:34] VITALS: BP 120/85; PULSE 82; RESP 17; O2SAT 100
[2018-06-07] MEDS: Ondansetron 4 MG/2 ML Vial IV (21:34)
[2018-06-07] MEDS: Morphine 4 MG/ML Syringe IV (21:34)
[2018-06-07 21:39] LABS: Absolute Lymphocyte Count 1.06 X10^3/ul (0.83-4.51); Absolute Neutrophil Count 4.6 X10^3/uL (2.0-7.7); Basophil# 0.01 X10^3/uL; Basophil% 0.2 % (0-1); Hematocrit 35.4 % (37-47); Hemoglobin 11.1 g/dl (12.0-15.0); Lymphocyte # 1.06 X10^3/ul (4.0); Lymphocyte % 16.5 % (19-41); Mean Corp Hgb Conc 31.4 g/gl (32-36); Mean Corpuscular Hgb 27.1 pg (27.0-32.0); Mean Corpuscular Volume 86.3 fL (81-99); Mean Platelet Vol. 9.3 fl (6.2-12.0); Monocyte# 0.74 X10^3/uL; Monocyte% 11.5 % (0-10); Neutrophil # 4.59 X10^3/uL (2.7-7.7); Neutrophil % 71.2 % (47-70); Platelet Count 278 K/mm3 (150-450); RBC Distribution Width CV 18.5 % (11.6-14.6); White Blood Count 6.4 K/mm3 (4.4-11.0)
[2018-06-07 21:41] LABS: POSITIVE COUNT NO; POSITIVE DIFFERENTIAL NO; POSITIVE MORPHOLOGY NO
[2018-06-07 21:55] LABS: ALB/GLOB Ratio 0.6 RATIO (0.9-2.4); AST(SGOT) 36 U/L (15-37); Alanine Aminotransfer ALT/SGPT 58 U/L (13-56); Albumin, Serum 3.1 g/dL (3.2-5.0); Alkaline Phosphatase 81 U/L (45-117); Anion Gap 5 (5-15); BUN 26 mg/dL (7-18); BUN/Creat Ratio 29.3 RATIO (10-20); Calcium,Total 9.9 mg/dL (8.5-10.1); Chloride 99 mmol/L (98-107); Creatinine, Serum 0.89 mg/dL (0.55-1.02); EST Glomerular Filtration Rate 70 mL/min (>60); Est Glom Filt Rate - Afr Amer 84 mL/min (>60); Estimated Creatinine Clearance 99.39 ml/min; Globulin 4.9 g/dL (2.2-4.2); Glucose 116 mg/dL (74-106); Lipase 339 U/L (73-393); Potassium 3.8 mmol/L (3.5-5.1); Sodium Level 139 mmol/L (136-145)
[2018-06-07 23:02] LABS: Bacteria 0 SEEN /hpf (None Seen)
[2018-06-07 23:06] LABS: Color, Urine Yellow (Yellow); Glucose, Dipstick Normal (Normal); Ketone-Dipstick Negative (Negative); Leukocyte Esterase-Dipstick Negative /ul (Negative); Nitrite-Dipstick Negative (Negative); Occult Blood-Urine 50 /ul (Negative); Protein-Dipstick 100 mg/dl (Negative); Urine Bilirubin Dipstick Negative (Negative); Urine Clarity Cloudy (Clear); Urine Urobilinogen Normal (Normal)
[2018-06-07 23:11] LABS: Squamous Epithelial Cells - UA 0-5 SEEN /hpf (5-10)
[2018-06-07 23:12] LABS: Mucous, Urine 2+ /hpf (<or=2+)
[2018-06-07 23:14] LABS: Fine Granular Cast- Urine 0-5 SEEN /lpf (0-5); Hyaline Cast 5-10 SEEN /lpf (0-5)
--- NOTE | 2018-06-07 23:14 | ED.VISSUMM ---
- ER Visit Summary Date of Service: 06/07/18 Chief Complaint: Nausea and vomiting History of Present Illness: The patient is a 57 F presenting with nausea, vomiting, and diarrhea which started today. She denies blood in her stool or emesis. She also complains of generalized weakness. Denies fever. She has diffuse abdominal pain. She has a history of metastatic rectal cancer. Her last chemotherapy was 3 weeks ago. She has not had surgery or radiation. Physical Examination: Vitals are stable. Patient is afebrile. Alert no acute distress. HEENT exam dry mucous membranes Neck is supple. Lungs are clear and equal bilaterally. Heart is regular rate and rhythm. Abdomen is soft mild diffuse tenderness with no rebound or guarding Extremities are unremarkable. Skin is warm and dry. No focal neurologic deficit. Remainder of exam is unremarkable. Emergency Department Course and Treatment: Patient is given IV fluids, morphine, Zofran. CBC shows a hemoglobin 11.1. Chemistries show glucose 116, BUN 26. Lipase 339. CT abdomen and pelvis shows there is diffuse enlargement of the pancreas with yoana-pancreatic edema suggesting acute pancreatitis. Multiple hypoattenuation lesions are seen in liver have nonspecific appearance largest measures approximately 4 cm suggesting metastatic lesions. There is soft tissue mass to the right of the rectum measures 3 cm in diameter may represent a rectal neoplasm. Patient has some improvement of her pain but continues to complain of nausea. She does not feel well enough to go home. She does not want to be transferred to [facility] at this time. Discussed with the hospitalist for observation. Disposition: Observation Impression: Pancreatitis, metastatic rectal cancer This note was generated with [employer] dictation software. It may contain incorrect words, spelling, and punctuation that were not noted in review of the chart prior to signing ED Disposition - Plan for ED Patient: Chief Complaint: Nausea/Vomiting Referrals: Mehul Powers MD [Primary Care Provider] -
[2018-06-07 23:16] LABS: Red Blood Cells-Urine 0-5 SEEN /hpf (0-5); White Blood Cells 0-5 SEEN /hpf (0-5)
--- NOTE | 2018-06-07 23:18 | ED.DCSUM_ITS ---
- ER Visit Summary Date of Service: 06/07/18 Chief Complaint: Nausea and vomiting History of Present Illness: The patient is a 57 F presenting with nausea, vomiting, and diarrhea which started today. She denies blood in her stool or emesis. She also complains of generalized weakness. Denies fever. She has diffuse abdominal pain. She has a history of metastatic rectal cancer. Her last chemotherapy was 3 weeks ago. She has not had surgery or radiation. Physical Examination: Vitals are stable. Patient is afebrile. Alert no acute distress. HEENT exam dry mucous membranes Neck is supple. Lungs are clear and equal bilaterally. Heart is regular rate and rhythm. Abdomen is soft mild diffuse tenderness with no rebound or guarding Extremities are unremarkable. Skin is warm and dry. No focal neurologic deficit. Remainder of exam is unremarkable. Emergency Department Course and Treatment: Patient is given IV fluids, morphine , Zofran. CBC shows a hemoglobin 11.1. Chemistries show glucose 116, BUN 26. Lipase 339. CT abdomen and pelvis shows there is diffuse enlargement of the pancreas with yoana-pancreatic edema suggesting acute pancreatitis. Multiple hypoattenuation lesions are seen in liver have nonspecific appearance largest measures approximately 4 cm suggesting metastatic lesions. There is soft tissue mass to the right of the rectum measures 3 cm in diameter may represent a rectal neoplasm. Patient has some improvement of her pain but continues to complain of nausea. She does not feel well enough to go home. She does not want to be transferred to [facility] at this time. Discussed with the hospitalist for observation. Disposition: Observation Impression: Pancreatitis, metastatic rectal cancer This note was generated with [employer] dictation software. It may contain incorrect words, spelling, and punctuation that were not noted in review of the chart prior to signing ED Disposition - Plan for ED Patient: Chief Complaint: Nausea/Vomiting Referrals: Mehul Powers MD [Primary Care Provider] -
[2018-06-07 23:34] VITALS: BP 99/77; PULSE 80; RESP 13; O2SAT 98
--- NOTE | 2018-06-08 00:11 | PCM.HP.STD ---
Problem List (1) Rectal carcinoma Status: Acute (2) Liver metastases Status: Acute (3) Brain metastases Status: Acute (4) Essential (primary) hypertension Status: Chronic (5) Dyslipidemia Status: Chronic (6) Gout Status: Chronic History of Present Illness Date of Admission: 06/08/18 Chief Complaint: abdominal pain with nausea The patient is a 57 year old female patient with a significant history of rectal cancer with metastatic disease to liver and brain. She was diagnosed in late February and has had two treatments of chemotherapy the last one being 2 weeks ago. She has had poor appetite and weakness. She has had worsening abdominal pain today and came to ER for further evaluation. CT scan reveals a 3 cm rectal tumor with liver metastatic disease along with inflammation around her pancreas. Lipase is within normal limits. She does not want to go to [facility] for her care unless absolutely necessary. She prefers to stay here for treatment and would like to have a local oncologist manage her care. Past Medical History Past Medical History (Chronic Problems): Chronic Problems Essential (primary) hypertension (Chronic) Dyslipidemia (Chronic) Gout (Chronic) BMI 45.0-49.9, adult (Chronic) Metastatic melanoma (Chronic) IgA nephropathy (Chronic) Allergies amoxicillin Allergy (Verified 06/07/18 20:11) Nausea Penicillins Allergy (Verified 06/07/18 19:48) Rash Home Medications: Ambulatory Orders Medication Instructions Recorded Allopurinol [Zyloprim] 300 mg PO DAILY 02/22/18 Cholecalciferol (Vitamin D3) 3,000 unit PO DAILY 02/22/18 [Vitamin D3] Hydrochlorothiazide [Hctz] 25 mg PO DAILY 02/22/18 Lisinopril [Zestril] 20 mg PO BID 02/22/18 Simvastatin [Zocor] 20 mg PO QHS 02/22/18 Docusate Sodium [Colace] 200 mg PO QHS 05/28/18 Gabapentin [Neurontin] 900 mg PO QHS 05/28/18 Magnesium Oxide [Mag-Ox 400] 400 mg PO BID 05/28/18 Multivitamin [Daily Multiple 1 each PO DAILY 05/28/18 Vitamin] Ondansetron [Zofran] 8 mg PO Q6H PRN PRN 05/28/18 Smoking Status: Never smoker - *Family History Maternal History Items: Cancer Review of Systems Constitutional: Reports: Malaise, Weakness, Fatigue. Denies: Chills, Fever, Weight Change HEENT: Denies: Head Aches, Sinus Congestion, Sinus Drainage Cardiovascular: Denies: Chest Pain, Palpitations Respiratory: Denies: Cough, Shortness of breath at rest, Sputum production Gastrointestinal: Reports: Abdominal Pain, Nausea, Vomiting Genitourinary: Denies: Dysuria Musculoskeletal: Denies: Joint Pain, Joint Tenderness Skin: Denies: Rash, Wounds Neurological: Denies: Numbness, Tingling, Focal weakness Psychiatric: Denies: Anxiety, Depression, Homicidal Ideations, Suicidal Ideations Hematologic/ Lymphatic: Denies: Easy Bruising, Easy Bleeding VTE Information - Inpt Only VTE Present on Admission: No VTE Mechan Device Prophylaxis: SCD's VTE Pharm Prophylaxis ordered?: No Patient Problems: Active and Suspected Problems Rectal carcinoma (Acute) Liver metastases (Acute) Brain metastases (Acute) - Physical Exam General: Alert, Oriented x3, Cooperative HEENT: Atraumatic, Normocephalic Neck: Supple Lungs: Clear to auscultation, Normal air movement Cardiovascular: Regular rate, Normal S1, Normal S2, No murmurs Abdomen: Bowel Sounds Present, Distended, Obese, Tender Extremities: No edema, Capillary Refill Less than 3 Seconds Skin: No rashes Musculoskeletal: No Tenderness to Palpation of Joints or Extremities Neurological: Neuro grossly intact Psych/Mental Status: Normal Affect, Appropriate Vital Signs Temp Pulse Resp BP Pulse Ox 97.4 F L 80 13 99/77 98 06/07/18 19:49 06/07/18 23:34 06/07/18 23:34 06/07/18 23:34 06/07/18 23:34 Assessment/Plan All Active Problems Rectal bleed (Acute) Rectal carcinoma (Acute) Liver metastases (Acute) Brain metastases (Acute) Chronic Problems Essential (primary) hypertension (Chronic) Dyslipidemia (Chronic) Gout (Chronic) BMI 45.0-49.9, adult (Chronic) Metastatic melanoma (Chronic) IgA nephropathy (Chronic) Plan - admit to general medical floor - dilaudid 1mg IV q 2 hrs prn pain - consult Dr. Jeuss in am - IV d51/2 NS with 20 meq KCL at 100 cc/ hour - cbc , cmp, lipase in am - scds for dvt prophylaxis - NPO for now Code Visit Inpatient E&M: 82039 Init Hosp L3
[2018-06-08 00:44] VITALS: BMI 43.1
[2018-06-08 00:45] VITALS: BP 121/90; PULSE 86; RESP 16; TEMP 36.3; O2SAT 99
[2018-06-08 00:53] VITALS: BMI 43.2
[2018-06-08 05:43] LABS: Absolute Lymphocyte Count 1.31 X10^3/ul (0.83-4.51); Absolute Neutrophil Count 3.5 X10^3/uL (2.0-7.7); Basophil# 0.01 X10^3/uL; Basophil% 0.2 % (0-1); Eosinophil# 0.01 X10^3/uL; Eosinophils% 0.2 % (0-5); Hematocrit 31.3 % (37-47); Hemoglobin 9.9 g/dl (12.0-15.0); Lymphocyte # 1.31 X10^3/ul (4.0); Lymphocyte % 22.7 % (19-41); Mean Corp Hgb Conc 31.6 g/gl (32-36); Mean Corpuscular Volume 88.7 fL (81-99); Mean Platelet Vol. 9.6 fl (6.2-12.0); Monocyte# 0.94 X10^3/uL; Monocyte% 16.3 % (0-10); Neutrophil # 3.47 X10^3/uL (2.7-7.7); Neutrophil % 60.1 % (47-70); Platelet Count 293 K/mm3 (150-450); RBC Distribution Width CV 18.5 % (11.6-14.6); RBC Distribution Width SD 58.2 fl (35.1-43.9); Red Blood Count 3.53 M/mm3 (4.2-5.4); White Blood Count 5.8 K/mm3 (4.4-11.0)
[2018-06-08 05:51] LABS: POSITIVE COUNT NO; POSITIVE DIFFERENTIAL NO; POSITIVE MORPHOLOGY NO
[2018-06-08 06:33] VITALS: BP 125/79; PULSE 81; RESP 16; TEMP 36.4; O2SAT 94
[2018-06-08] MEDS: 0.9% NaCl Peripheral Flush Adult/Peds IV ×2 (06:37→23:52)
[2018-06-08 07:12] LABS: ALB/GLOB Ratio 0.7 RATIO (0.9-2.4); AST(SGOT) 37 U/L (15-37); Alanine Aminotransfer ALT/SGPT 49 U/L (13-56); Albumin, Serum 2.8 g/dL (3.2-5.0); Alkaline Phosphatase 70 U/L (45-117); Anion Gap 10 (5-15); BUN 24 mg/dL (7-18); BUN/Creat Ratio 30.7 RATIO (10-20); Calcium,Total 9.4 mg/dL (8.5-10.1); Chloride 103 mmol/L (98-107); Creatinine, Serum 0.78 mg/dL (0.55-1.02); EST Glomerular Filtration Rate 81 mL/min (>60); Est Glom Filt Rate - Afr Amer 98 mL/min (>60); Estimated Creatinine Clearance 75.39 ml/min; Globulin 4.1 g/dL (2.2-4.2); Glucose 112 mg/dL (74-106); Lipase 262 U/L (73-393); Potassium 3.8 mmol/L (3.5-5.1); Protein, Total 6.9 g/dL (6.4-8.2); Sodium Level 144 mmol/L (136-145)
[2018-06-08] MEDS: Ondansetron 4 MG/2 ML Vial IV ×3 (09:27→23:51)
[2018-06-08 09:30] VITALS: BP 101/59; PULSE 80; RESP 20; TEMP 36.5; O2SAT 92
[2018-06-08] MEDS: HYDROmorphone 1 MG/ML Syringe IV ×2 (09:41→17:22)
--- NOTE | 2018-06-08 13:07 | ONC.CON.INP2 ---
- Problem List (1) Metastatic melanoma Status: Acute (2) Brain metastases Status: Acute Subjective Chief Complaint: N/V, Abdominal pain History of Present Illness: HPI: patient is a 57-year-old female who had an approximate 6 month history of rectal pain and bleeding prior to presentation. - The patient has a history of rectal pain and bleeding for about 6 months prior to presentation. ? -~6 cm ulcerated mass extending from the anal verge into the rectum. - 02.22.18 CT wall thickening and edema involving the anus and distal rectum with perirectal lymph nodes (right inguinal lymphadenopathy measuring 1.9x2.6 cm with additional smaller bilateral inguinal lymph node),Multiple solid pulmonary nodules in the bilateral lungs -~03/12/18 - 04/09/18 carboplatin AUC 6 and paclitaxel 225mg/m2 - 05/03/18 CT disease progression in liver\05/10/18 nephrology consult for IgA nephropathy\05/21/2018 ipilimumab + nivolumab. ? Molecular Studies: KIT - A sequence change: [id number] ([id number]) in exon 13 detected at approximately 93% allelic proportion (depth of coverage at change 5839) [Reference sequence: (NM_000222.2)]. BRAF ?No variant detected [Reference sequence: (NM 391758.4)]. NRAS - No variant detected [Reference sequence: (NM_002524.4)]. She recently presented to [facility] for mental status changes and was transferred to [facility]. Workup including CT scans of chest, abdomen and pelvis as well as MRI of the brain disclosed liver metastases along with abdominal lymph node metastases and multiple brain metastases. other recent medical history includes IgA nephropathy, gout and hypertension. She was discharged from [facility] last . Plan was for outpatient gamma knife radiation for brain metastases. She received one dose of combination immunotherapy utilizing ipilimumab and nivolumab on 05/21/2018. At the time of discharge it was recommended that she be on dexamethasone and valproic acid. Apparently was brought to the emergency room last night with complaints of abdominal pain. Concern was for pancreatitis based on CT scan findings but lipase is normal. Today she seems slightly confused and takes a while to answer questions. She said she had headache that she noticed beginning earlier today. She's had loose bowel movements since receiving immunotherapy. She says she just feels overall yucky. She is having abdominal pain that appears to be well controlled on current pain medications. She denies nausea. She is not short of breath at rest. No trouble with coughing or sputum production. No wheezing. No rash. She has abdominal ecchymoses from Lovenox injections. No symptoms of neuropathy. Past Medical History: Chronic Problems Essential (primary) hypertension (Chronic) Dyslipidemia (Chronic) Gout (Chronic) BMI 45.0-49.9, adult (Chronic) IgA nephropathy (Chronic) Past Medical/Surgical History: Past Medical History - Most Recent Inpatient Visit Past Medical History Start: 06/08/18 00:43 Text: Status: Complete Freq: ONCE Protocol: Document 06/08/18 00:53 ELISE (Rec: 06/08/18 00:57 [facility] [place] [id number]) BMI Required to complete PMH What is Patient's BMI 43.2 Past Medical History Unable History Recalled No Query Text:Pt Unable/Family Not Present Neurologic Medical History Hx Stroke/TIA No Hx Dementia/Alzheimer's No Hx Parkinson's Disease No Hx Seizures No Hx Multiple Sclerosis No Hx Migraines No Cardiac Medical History VTE Present on Admission No Hx of Deep Vein Thrombosis/VTE/PE No Hx Hypertension Yes Hx Chest Pain/Angina No Hx Heart Attack No Hx Cardiac Surgery/Stents/Etc. No Hx Heart Failure No Hx Pacemaker/AICD No Hx Irregular Heartbeat and/or Afib No Hx Anticoagulant Therapy No Query Text:(Coumadin, Aspirin, Plavix, Xarelto, etc.) Hx Pain in Legs when Walking/Leg Cramps No Respiratory Medical History Hx COPD No Hx Emphysema No Hx Smoking No Smoking Status Never smoker Hx Tobacco Use in last 12 months No Hx Sleep Apnea No CPAP No BIPAP No Do you snore loudly (louder than talking Yes or can be heard through closed doors)? Do you often feel tired/ fatigued/ Yes sleepy during daytime? Has anyone observed you stop breathing No during sleep? STOP Results Positive GI Medical History Hx Ulcer No Hx Hepatitis No Hx Cirrhosis No Hx GI Bleed No Hx Unplanned Weight Loss Yes: lost 13 lbs due to chemo Genitourinary Medical History Indwelling Catheter in Place on Arrival/ No Admission Hx Renal Disease No Hx Dialysis No Musculoskeletal History Hx Arthritis No Hx Rheumatoid Arthritis No Endocrine Medical History Hx Diabetes No Hx Thyroid Disease No Hematologic Medical History Hx of Blood Transfusion No Hx of Transfusion in last 3 Months No Ever experience any problems with No transfusion(s)? Hx of Preganancy in last 3 Months No Nurse Filling Out Transfusion & JGLASS Questions: Date: 06/08/18 Time: 00:57 Psycho/Social Medical History Hx Depression No Hx Anxiety No Hx Behavior Disorder No Hx Alcohol Use No Hx Substance Use No Other Medical History Hx Blood Disorders No Hx Anemia No Hx Cancer Yes: brain, lung, stomach, liver, kidney Hx Drug Resistant Organism No Wound/Pressure Injury Present on Arrival No /Admission Query Text:If yes, chart assessment in Shift/Clinical Findings Central Line/PICC/VAD Present on Arrival No /Admission Antibiotics within last 7 days? No Risk for Readmission Number of Risk Factors 2 At Risk for Readmission Patient is At Risk For Readmission Patient is eligible for Call Back Y Maternal Family History: Cancer - Social History Smoking Status: Never smoker Allergies/Adverse Reactions: Allergy/AdvReac Type Severity Reaction Status Date / Time amoxicillin Allergy Nausea Verified 06/08/18 01:04 Penicillins Allergy Rash Verified 06/08/18 01:04 Review of Systems Constitutional:: Reports: Weakness, Fatigue Gastrointestinal:: Reports: Abdominal pain Vital Signs Height 1.68 m Weight: 121.3 kg Weight in Pounds 267.4 lbs Pulse Ox 92 Temperature 97.7 F Pulse Rate 80 Respiratory Rate 20 Blood Pressure 101/59 Blood Pressure Position Semi-Fowlers - Physical Exam General: Alert, Oriented x3 Cardiac:: Regular rate, Regular rhythm Lungs: Diminished Abdomen:: Soft, Non-tender Laboratory Data: Laboratory Tests 06/08/18 06/08/18 06/08/18 Range/Units 06:40 05:15 05:15 WBC 5.8 (4.4-11.0) K/mm3 RBC 3.53 L (4.2-5.4) M/mm3 Hgb 9.9 L (12.0-15.0) g/dl Hct 31.3 L (37-47) % MCV 88.7 (81-99) fL MCH 28.0 (27.0-32.0) pg MCHC 31.6 L (32-36) g/gl RDW 18.5 H (11.6-14.6) % RDW Differential 58.2 H (35.1-43.9) fl Plt Count 293 (150-450) K/mm3 MPV 9.6 (6.2-12.0) fl Immature Gran % (Auto) 0.500 (0.0-0.9) % Neut % (Auto) 60.1 (47-70) % Lymph % (Auto) 22.7 (19-41) % [place] % (Auto) 16.3 H (0-10) % Eos % (Auto) 0.2 (0-5) % Baso % (Auto) 0.2 (0-1) % Absolute Neuts (auto) 3.5 (2.0-7.7) X10^3/uL Absolute Lymphs (auto) 1.31 (0.83-4.51) X10^3/ul Total Counted Not Reportable Sodium 144 Cancelled Potassium 3.8 Cancelled Chloride 103 Cancelled Carbon Dioxide 31.0 Cancelled Anion Gap 10 Cancelled BUN 24 H Cancelled Creatinine 0.78 Cancelled Estim Creat Clear Calc 75.39 Cancelled Est GFR (MDRD) Af Amer 98 Cancelled Est GFR (MDRD) Non-Af 81 Cancelled BUN/Creatinine Ratio 30.7 H Cancelled Glucose 112 H Cancelled Calcium 9.4 Cancelled Total Bilirubin 0.40 Cancelled AST 37 Cancelled ALT 49 Cancelled Alkaline Phosphatase 70 Cancelled Total Protein 6.9 Cancelled Albumin 2.8 L Cancelled Globulin 4.1 Cancelled Albumin/Globulin Ratio 0.7 L Cancelled Lipase 262 Cancelled Diagnostic Data: Diagnostic Data Abdomen/Pelvis CT 06/07/18 21:07 IMPRESSION: There is diffuse enlargement of the pancreas with yoana-pancreatic edema suggesting acute pancreatitis. Multiple hypoattenuation lesions are seen in liver have nonspecific appearance largest measures approximately 4 cm suggesting metastatic lesions. There is soft tissue mass to the right of the rectum measures 3 cm in diameter may represent a rectal neoplasm. Electronically Signed: Zane Almazan MD at 22:33 EDT Tel , Service support , Assessment and Plan In summary the patient is a 57-year-old female who was recently diagnosed with metastatic melanoma from anal rectal primary. Lung metastases demonstrated objective response to chemotherapy with carboplatin and paclitaxel but recent progression of disease including widespread brain metastases propped to the institution of combination immunotherapy which she received on 8/3. She was discharged from [facility] last week following inpatient stay for delirium and hypertension and acute kidney injury. She is now readmitted with abdominal pain and debility. Her abdominal exam is completely benign. I believe most of the symptomatology to rise from her brain metastases. I recommend restarting dexamethasone 6 mg IV every 6 hours and arranging for inpatient transferred to [facility]. I left a voice message for the contact me regarding my recommendations. I will update the hospitalist as well. Medications: Medications Added to Medication List This Visit Category Date Time Status proCHLORPERazine IV [Compazine IV] Med 06/08/18 11:24 Active 10 mg IV Q6H PRN PRN Primary Care Provider: Mehul Powers Referring Provider:
--- NOTE | 2018-06-08 13:12 | CON.PCM_ITS ---
- Problem List (1) Metastatic melanoma Status: Acute (2) Brain metastases Status: Acute Subjective Chief Complaint: N/V, Abdominal pain History of Present Illness: HPI: patient is a 57-year-old female who had an approximate 6 month history of rectal pain and bleeding prior to presentation. - The patient has a history of rectal pain and bleeding for about 6 months prior to presentation. ? -~6 cm ulcerated mass extending from the anal verge into the rectum. - 02.22.18 CT wall thickening and edema involving the anus and distal rectum with perirectal lymph nodes (right inguinal lymphadenopathy measuring 1.9x2.6 cm with additional smaller bilateral inguinal lymph node),Multiple solid pulmonary nodules in the bilateral lungs -~03/12/18 - 04/09/18 carboplatin AUC 6 and paclitaxel 225mg/m2 - 05/03/18 CT disease progression in liver\05/10/18 nephrology consult for IgA nephropathy\05/21/2018 ipilimumab + nivolumab. ? Molecular Studies: KIT - A sequence change: [id number] (p.[id number]) in exon 13 detected at approximately 93% allelic proportion (depth of coverage at change 5839) [Reference sequence: (NM_[id number])]. BRAF ?No variant detected [Reference sequence: (NM [id number])]. NRAS - No variant detected [Reference sequence: (NM_002524.4)]. She recently presented to [facility] for mental status changes and was transferred to [facility]. Workup including CT scans of chest, abdomen and pelvis as well as MRI of the brain disclosed liver metastases along with abdominal lymph node metastases and multiple brain metastases. other recent medical history includes IgA nephropathy, gout and hypertension. She was discharged from [facility] last . Plan was for outpatient gamma knife radiation for brain metastases. She received one dose of combination immunotherapy utilizing ipilimumab and nivolumab on 2017. At the time of discharge it was recommended that she be on dexamethasone and valproic acid. Apparently was brought to the emergency room last night with complaints of abdominal pain. Concern was for pancreatitis based on CT scan findings but lipase is normal. Today she seems slightly confused and takes a while to answer questions. She said she had headache that she noticed beginning earlier today. She's had loose bowel movements since receiving immunotherapy. She says she just feels overall yucky. She is having abdominal pain that appears to be well controlled on current pain medications. She denies nausea. She is not short of breath at rest. No trouble with coughing or sputum production. No wheezing. No rash. She has abdominal ecchymoses from Lovenox injections. No symptoms of neuropathy. Past Medical History: Chronic Problems Essential (primary) hypertension (Chronic) Dyslipidemia (Chronic) Gout (Chronic) BMI 45.0-49.9, adult (Chronic) IgA nephropathy (Chronic) Past Medical/Surgical History: Past Medical History - Most Recent Inpatient Visit Past Medical History Start: 06/08/18 00: 43 Text: Status: Complete Freq: ONCE Protocol: Document 06/08/18 00:53 ELISE (Rec: 06/08/18 00:57 [facility] [place] [id number] BMI Required to complete PMH What is Patient's BMI 43.2 Past Medical History Unable History Recalled No Query Text:Pt Unable/Family Not Present Neurologic Medical History Hx Stroke/TIA No Hx Dementia/Alzheimer's No Hx Parkinson's Disease No Hx Seizures No Hx Multiple Sclerosis No Hx Migraines No Cardiac Medical History VTE Present on Admission No Hx of Deep Vein Thrombosis/VTE/PE No Hx Hypertension Yes Hx Chest Pain/Angina No Hx Heart Attack No Hx Cardiac Surgery/Stents/Etc. No Hx Heart Failure No Hx Pacemaker/AICD No Hx Irregular Heartbeat and/or Afib No Hx Anticoagulant Therapy No Query Text:(Coumadin, Aspirin, Plavix, Xarelto, etc.) Hx Pain in Legs when Walking/Leg Cramps No Respiratory Medical History Hx COPD No Hx Emphysema No Hx Smoking No Smoking Status Never smoker Hx Tobacco Use in last 12 months No Hx Sleep Apnea No CPAP No BIPAP No Do you snore loudly (louder than talking Yes or can be heard through closed doors)? Do you often feel tired/ fatigued/ Yes sleepy during daytime? Has anyone observed you stop breathing No during sleep? STOP Results Positive GI Medical History Hx Ulcer No Hx Hepatitis No Hx Cirrhosis No Hx GI Bleed No Hx Unplanned Weight Loss Yes: lost 13 lbs due to chemo Genitourinary Medical History Indwelling Catheter in Place on Arrival/ No Admission Hx Renal Disease No Hx Dialysis No Musculoskeletal History Hx Arthritis No Hx Rheumatoid Arthritis No Endocrine Medical History Hx Diabetes No Hx Thyroid Disease No Hematologic Medical History Hx of Blood Transfusion No Hx of Transfusion in last 3 Months No Ever experience any problems with No transfusion(s)? Hx of Preganancy in last 3 Months No Nurse Filling Out Transfusion & JGLASS Questions: Date: 06/08/18 Time: 00:57 Psycho/Social Medical History Hx Depression No Hx Anxiety No Hx Behavior Disorder No Hx Alcohol Use No Hx Substance Use No Other Medical History Hx Blood Disorders No Hx Anemia No Hx Cancer Yes: brain, lung, stomach, liver, kidney Hx Drug Resistant Organism No Wound/Pressure Injury Present on Arrival No /Admission Query Text:If yes, chart assessment in Shift/Clinical Findings Central Line/PICC/VAD Present on Arrival No /Admission Antibiotics within last 7 days? No Risk for Readmission Number of Risk Factors 2 At Risk for Readmission Patient is At Risk For Readmission Patient is eligible for Call Back Y Maternal Family History: Cancer - Social History Smoking Status: Never smoker Allergies/Adverse Reactions: Allergy/AdvReac Type Severity Reaction Status Date / Time amoxicillin Allergy Nausea Verified 06/08/18 01:04 Penicillins Allergy Rash Verified 06/08/18 01:04 Review of Systems Constitutional:: Reports: Weakness, Fatigue Gastrointestinal:: Reports: Abdominal pain Vital Signs Height 1.68 m Weight: 121.3 kg Weight in Pounds 267.4 lbs Pulse Ox 92 Temperature 97.7 F Pulse Rate 80 Respiratory Rate 20 Blood Pressure 101/59 Blood Pressure Position Semi-Fowlers - Physical Exam General: Alert, Oriented x3 Cardiac:: Regular rate, Regular rhythm Lungs: Diminished Abdomen:: Soft, Non-tender Laboratory Data: Laboratory Tests 3 06/08/18 06/08/18 06/08/18 Range/Units 06:40 05:15 05:15 WBC 5.8 (4.4-11.0) K/mm3 RBC 3.53 L (4.2-5.4) M/mm3 Hgb 9.9 L (12.0-15.0) g/dl Hct 31.3 L (37-47) % MCV 88.7 (81-99) fL MCH 28.0 (27.0-32.0) pg MCHC 31.6 L (32-36) g/gl RDW 18.5 H (11.6-14.6) % RDW Differential 58.2 H (35.1-43.9) fl Plt Count 293 (150-450) K/mm3 MPV 9.6 (6.2-12.0) fl Immature Gran % (Auto) 0.500 (0.0-0.9) % Neut % (Auto) 60.1 (47-70) % Lymph % (Auto) 22.7 (19-41) % [place]son % (Auto) 16.3 H (0-10) % Eos % (Auto) 0.2 (0-5) % Baso % (Auto) 0.2 (0-1) % Absolute Neuts (auto) 3.5 (2.0-7.7) X10^3/uL Absolute Lymphs (auto) 1.31 (0.83-4.51) X10^3/ul Total Counted Not Reportable Sodium 144 Cancelled Potassium 3.8 Cancelled Chloride 103 Cancelled Carbon Dioxide 31.0 Cancelled Anion Gap 10 Cancelled BUN 24 H Cancelled Creatinine 0.78 Cancelled Estim Creat Clear Calc 75.39 Cancelled Est GFR (MDRD) Af Amer 98 Cancelled Est GFR (MDRD) Non-Af 81 Cancelled BUN/Creatinine Ratio 30.7 H Cancelled Glucose 112 H Cancelled Calcium 9.4 Cancelled Total Bilirubin 0.40 Cancelled AST 37 Cancelled ALT 49 Cancelled Alkaline Phosphatase 70 Cancelled Total Protein 6.9 Cancelled Albumin 2.8 L Cancelled Globulin 4.1 Cancelled Albumin/Globulin Ratio 0.7 L Cancelled Lipase 262 Cancelled Diagnostic Data: Diagnostic Data Abdomen/Pelvis CT 06/07/18 21:07 IMPRESSION: There is diffuse enlargement of the pancreas with yoana-pancreatic edema suggesting acute pancreatitis. Multiple hypoattenuation lesions are seen in liver have nonspecific appearance largest measures approximately 4 cm suggesting metastatic lesions. There is soft tissue mass to the right of the rectum measures 3 cm in diameter may represent a rectal neoplasm. Electronically Signed: Zane Almazan MD at 22:33 EDT Tel , Service support , Assessment and Plan In summary the patient is a 57-year-old female who was recently diagnosed with metastatic melanoma from anal rectal primary. Lung metastases demonstrated objective response to chemotherapy with carboplatin and paclitaxel but recent progression of disease including widespread brain metastases propped to the institution of combination immunotherapy which she received on 05/21. She was discharged from [facility] last week following inpatient stay for delirium and hypertension and acute kidney injury. She is now readmitted with abdominal pain and debility. Her abdominal exam is completely benign. I believe most of the symptomatology to rise from her brain metastases. I recommend restarting dexamethasone 6 mg IV every 6 hours and arranging for inpatient transferred to [facility]. I left a voice message for the contact me regarding my recommendations. I will update the hospitalist as well. Medications: Medications Added to Medication List This Visit Category Date Time Status proCHLORPERazine IV [Compazine IV] Med 06/08/18 11:24 Active 10 mg IV Q6H PRN PRN Primary Care Provider: Mehul Powers Referring Provider:
[2018-06-08 14:20] VITALS: BP 140/84; PULSE 76; RESP 16; TEMP 36.4; O2SAT 94
[2018-06-08] MEDS: proCHLORPERazine 10 MG/2 ML Vial IV (14:35)
--- NOTE | 2018-06-08 16:51 | PCM.PN.HOSP ---
Patient Problems: Active and Suspected Problems Rectal carcinoma (Acute) Liver metastases (Acute) Brain metastases (Acute) Brain metastases (Acute) Subjective: Lethargic this morning and unable to remain attentive during the conversation. Continues to have abdominal pain and nausea. Vitals/I&O's: Vital Signs Temp Pulse Resp BP Pulse Ox 97.5 F L 76 16 140/84 H 94 06/08/18 14:20 06/08/18 14:20 06/08/18 14:20 06/08/18 14:20 06/08/18 14:20 Oxygen Flow Rate (L/min) 2 Oxygen Delivery Method Room Air Weight: 267 lb 6.731 oz Body Mass Index (BMI) 43.1 Intake and Output for Last 24 Hours 06/06/18 06/07/18 06/08/18 23:59 23:59 23:59 Intake Total 1008 / 1008 Balance 1008 / 1008 General: - - Sleepy, difficulty keeping her eyes open, oriented x3 HEENT: Atraumatic, Normocephalic Oral: Dry Mucosa Neck: Supple, No JVD Lungs: Clear to auscultation, Normal air movement, No rhonchi, No wheeze, No rales Cardiovascular: Regular rate, Regular Rhythm, Normal S1, Normal S2, No murmurs Abdomen: Soft, Non-Distended, No Hepato-splenomegaly, Tender - mildly tender in the epigastrum Laboratory Results 06/08/18 05:15: WBC 5.8, RBC 3.53 L, Hgb 9.9 L, Hct 31.3 L, MCV 88.7, MCH 28.0, MCHC 31.6 L, RDW 18.5 H, RDW Differential 58.2 H, Plt Count 293, MPV 9.6, Immature Gran % (Auto) 0.500, Neut % (Auto) 60.1, Lymph % (Auto) 22.7, Becker % (Auto) 16.3 H, Eos % (Auto) 0.2, Baso % (Auto) 0.2, Absolute Neuts (auto) 3.5, Absolute Lymphs (auto) 1.31, Total Counted Not Reportable 06/08/18 05:15: Sodium Cancelled, Potassium Cancelled, Chloride Cancelled, Carbon Dioxide Cancelled, Anion Gap Cancelled, BUN Cancelled, Creatinine Cancelled, Estim Creat Clear Calc Cancelled, Est GFR (MDRD) Af Amer Cancelled, Est GFR (MDRD) Non-Af Cancelled, BUN/Creatinine Ratio Cancelled, Glucose Cancelled, Calcium Cancelled, Total Bilirubin Cancelled, AST Cancelled, ALT Cancelled, Alkaline Phosphatase Cancelled, Total Protein Cancelled, Albumin Cancelled, Globulin Cancelled, Albumin/Globulin Ratio Cancelled, Lipase Cancelled 06/08/18 06:40: Sodium 144, Potassium 3.8, Chloride 103, Carbon Dioxide 31.0, Anion Gap 10, BUN 24 H, Creatinine 0.78, Estim Creat Clear Calc 75.39, Est GFR (MDRD) Af Amer 98, Est GFR (MDRD) Non-Af 81, BUN/Creatinine Ratio 30.7 H, Glucose 112 H, Calcium 9.4, Total Bilirubin 0.40, AST 37, ALT 49, Alkaline Phosphatase 70, Total Protein 6.9, Albumin 2.8 L, Globulin 4.1, Albumin/Globulin Ratio 0.7 L, Lipase 262 Current Medications Dexamethasone Sodium Phosphate (Decadron) 4 mg IV Q6 COUNTS INCLUDE 234 BEDS AT THE [facility] Enoxaparin Sodium (Lovenox) 40 mg SC DAILY@0600 COUNTS INCLUDE 234 BEDS AT THE [facility] Hydromorphone HCl (Dilaudid Inj) 1 mg IV Q2H PRN PRN PRN Reason: SEVERE PAIN (6-10/10) Last Admin: 06/08/18 09:41 Dose: 1 mg Potassium Chloride/Dextrose/Sod Cl (Kcl 20meq In D5.45ns 1000ml) 1,000 mls @ 100 mls/hr IV .Q10H DIAZ Last Admin: 06/08/18 12:36 Dose: 100 mls/hr Sodium Chloride () 250 mls @ 15 mls/hr IV .[id number] PRN PRN Reason: SALINE FLUSH Magnesium Hydroxide (Milk Of Magnesia) 30 ml PO DAILY PRN PRN PRN Reason: Constipation Ondansetron HCl (Zofran) 4 mg IV Q6H PRN PRN PRN Reason: NAUSEA Last Admin: 06/08/18 15:33 Dose: 4 mg Prochlorperazine Edisylate (Compazine Iv) 10 mg IV Q6H PRN PRN PRN Reason: NAUSEA/VOMITING Last Admin: 06/08/18 14:35 Dose: 10 mg Sodium Chloride () 5 - 30 ml IV UD PRN PRN Reason: SALINE FLUSH Last Admin: 06/08/18 06:37 Dose: 10 ml Medical Necessity - Tobacco Use Smoking Status: Never smoker Assessment/Plan All Active Problems Rectal bleed (Acute) Metastatic melanoma (Acute) Rectal carcinoma (Acute) Liver metastases (Acute) Brain metastases (Acute) Brain metastases (Acute) 1. Metastatic melanoma to the liver and brain/nausea and vomiting/acute pancreatitis - Her cancer care has mostly been at the [facility] - She had chemo therapy up there in february and then it was found that her cancer had spread - She was discharged last after receiving a dose of immunoptherapy - She came in with abdominal pain that was thought to be pancreatitis based on her CT scan which had mild fat stranding surrounding the tail of the pancreas despite normal lipase - Bile ducts appear normal, and multiple chemotherapeutic agents pose the risk of pancreatitis - C/w IVF@100 VS are stable - Will start decadron 4 mg IV q6 for brain mets with nausea - Dilaudid for pain - c/w zofran and compazine - Appreciate oncology recs 2. Gout - will hold her allopurinol for now 3. HTN/HLD - hold her lisinopril, HCTZ and simvastatin - All three can cause pancreatitis with simvastatin being the most likely DVT: Lovenox Diet: NPO Code: FULL Dispo: Remain on med surg will need to have a discussion with family and discuss goals of care Code Visit Inpatient E&M: 09172 Subs Hosp L2
[2018-06-08] MEDS: Enoxaparin 40 MG/0.4 ML Syringe SC (17:26)
[2018-06-08] MEDS: 0.9% Normal Saline 1,000 ML 500 ML IV (17:39)
[2018-06-08 20:10] VITALS: BP 158/97; PULSE 84; RESP 16; TEMP 36.4; O2SAT 93
--- NOTE | 2018-06-08 23:30 | NURSING ---
VETERINARY MANAGER called this RN and made her aware pt was vomiting. This RN immediately entered the room and asked the patient if she was OK. The patient's then got upset with this RN that she had asked that question. This RN asked if the patient had tried any of the jello or water that was brought in and if that was why she was vomiting. The patient's continued to get upset with this RN that she had brought in green jello, that the mouth swabs were green, stating that the patient does not like anything green. This RN tried to calmly talk with the patient's , explaining the RN did not know the patient didn't like green things. He then continued to say she was getting too much Decadron and this RN again calmly stated I haven't given her her Decadron yet tonight. The patient's told this RN to stop talking so loud and that he was talking about other nurses. He was very upset, so this RN offered to get the career placement specialist. Pt's then started to ask how old this RN was and when this RN graduated and that this RN had ip technology transactions attorney as a nurse. Pt's stated he was going to go for a walk in the parking lot. VETERINARY MANAGER was present in room for entire event. sterile processing technician began to get pt cleaned up and this RN went to get medications for pt.
[2018-06-09] MEDS: 0.9% NaCl Peripheral Flush Adult/Peds IV ×6 (00:30→18:04)
[2018-06-09] MEDS: HYDROmorphone 1 MG/ML Syringe IV ×5 (00:30→23:42)
[2018-06-09 02:10] VITALS: BP 152/86; PULSE 71; RESP 18; TEMP 36.6; O2SAT 95
[2018-06-09] MEDS: Ondansetron 4 MG/2 ML Vial IV ×3 (05:58→23:42)
[2018-06-09] MEDS: Enoxaparin 40 MG/0.4 ML Syringe SC (05:58)
[2018-06-09 06:29] LABS: Absolute Lymphocyte Count 0.88 X10^3/ul (0.83-4.51); Hematocrit 31.9 % (37-47); Hemoglobin 10.1 g/dl (12.0-15.0); Lymphocyte # 0.88 X10^3/ul (4.0); Lymphocyte % 16.7 % (19-41); Mean Corp Hgb Conc 31.7 g/gl (32-36); Mean Corpuscular Hgb 27.4 pg (27.0-32.0); Mean Corpuscular Volume 86.7 fL (81-99); Mean Platelet Vol. 9.7 fl (6.2-12.0); Monocyte# 0.31 X10^3/uL; Monocyte% 5.9 % (0-10); Neutrophil # 4.03 X10^3/uL (2.7-7.7); Neutrophil % 76.5 % (47-70); Platelet Count 316 K/mm3 (150-450); RBC Distribution Width SD 56.4 fl (35.1-43.9); Red Blood Count 3.68 M/mm3 (4.2-5.4); White Blood Count 5.3 K/mm3 (4.4-11.0)
[2018-06-09 06:30] LABS: POSITIVE COUNT NO; POSITIVE DIFFERENTIAL NO; POSITIVE MORPHOLOGY NO
[2018-06-09 06:51] LABS: Anion Gap 10 (5-15); BUN 20 mg/dL (7-18); BUN/Creat Ratio 27.9 RATIO (10-20); Calcium,Total 9.2 mg/dL (8.5-10.1); Chloride 104 mmol/L (98-107); Creatinine, Serum 0.72 mg/dL (0.55-1.02); EST Glomerular Filtration Rate 89 mL/min (>60); Est Glom Filt Rate - Afr Amer 108 mL/min (>60); Estimated Creatinine Clearance 81.67 ml/min; Glucose 126 mg/dL (74-106); Sodium Level 141 mmol/L (136-145)
[2018-06-09 07:42] VITALS: BP 156/90; PULSE 73; RESP 18; TEMP 36.7; O2SAT 99
--- NOTE | 2018-06-09 08:37 | PCM.PROGNOTE ---
Patient Problems: Active and Suspected Problems Rectal carcinoma (Acute) Liver metastases (Acute) Brain metastases (Acute) Brain metastases (Acute) Subjective: Affect is still somewhat distant and she's not able to articulate symptoms well. I just don't feel good. Has nausea and was only able to take in a few ice chips last evening. Has abdominal pain. Complaint of continued all-over headache. - Physical Exam General: Alert Lungs: Diminished Cardiovascular: Regular Rhythm Abdomen: Soft - Mildly tender in upper abdomen. Vital Signs Temp Pulse Resp BP Pulse Ox 98.0 F 73 18 156/90 H 99 06/09/18 07:42 06/09/18 07:42 06/09/18 07:42 06/09/18 07:42 06/09/18 07:42 Oxygen Flow Rate (L/min) 2 Oxygen Delivery Method Room Air Weight: 121.3 kg Body Mass Index (BMI) 43.1 Intake and Output for Last 24 Hours 06/07/18 06/08/18 06/09/18 23:59 23:59 23:59 Intake Total 1505 / 1505 2001 Output Total 1050 / 1050 725 / 725 Balance 455 / 455 1277 / 1277 Laboratory Tests Past 24 Hrs 06/09/18 06/09/18 05:40 05:40 WBC 5.3 RBC 3.68 L Hgb 10.1 L Hct 31.9 L MCV 86.7 MCH 27.4 MCHC 31.7 L RDW 18.0 H RDW Differential 56.4 H Plt Count 316 MPV 9.7 Immature Gran % (Auto) 0.900 Neut % (Auto) 76.5 H Lymph % (Auto) 16.7 L Hood % (Auto) 5.9 Eos % (Auto) 0.0 Baso % (Auto) 0.0 Absolute Neuts (auto) 4.0 Absolute Lymphs (auto) 0.88 Total Counted Not Reportable Sodium 141 Potassium 4.0 Chloride 104 Carbon Dioxide 27.0 Anion Gap 10 BUN 20 H Creatinine 0.72 Estim Creat Clear Calc 81.67 Est GFR (MDRD) Af Amer 108 Est GFR (MDRD) Non-Af 89 BUN/Creatinine Ratio 27.9 H Glucose 126 H Calcium 9.2 Medical Necessity - Tobacco Use Smoking Status: Never smoker Assessment/Plan All Active Problems Rectal bleed (Acute) Metastatic melanoma (Acute) Rectal carcinoma (Acute) Liver metastases (Acute) Brain metastases (Acute) Brain metastases (Acute) 1) Metastatic anorectal melanoma. Assessment: -KPS is 30%. -Steroids started yesterday with no change in overall MS as of yet. -Received first dose combination ipi/nivolumab 05/21/2018. Plan: -Had long discussion with last evening. I explained the non-curable nature of the disease and that given her KPS and untreated brain metastases, all efforts are palliative. He's having a hard time coming to acceptance of this. He will need close supportive communication over the next few days to weeks. -Reasonable to obtain radiation oncology opinion on the potential risks/benefits of WBRT. -Recommend palliative care/hospice consultation at this time as well. -Discussed with Dr. Velasco and Dr. Mercedes.
--- NOTE | 2018-06-09 12:07 | CASEMGMT ---
SHAYE SHAW updated by Dr. Mercedes that family is interested in palliative radiation and ECF placement. SHAYE SHAW and AMY Campos in to discuss discharge options with . states that he understand that they would need to pay privately for ECF and would like prices for area facilities. states that Palliative/Hospice is to speak with him later today. SHAYE SHAW called Dr. Velasco regarding palliative/hospice referral and Dr. Velasco order consult for palliative/hospice referral. SHAYE SHAW updated AMY Campos regarding palliative/hospice referral. CM will remain available for assistance with discharge planning.
--- NOTE | 2018-06-09 14:00 | CASEMGMT ---
Social Work Note [facility] to confirm bed availability and to determine private pay costs. [facility] doesn't have beds available. [facility] and [facility] are willing to review referral. AMY faxed referral to [facility] and [facility]. Makeda states that at [facility] private pay would be around $190 a day and she will need to check on bed availability for private room. Avani at [facility] states that private pay would be around $250 a day and she has private rooms available. [facility] private room is $270 a day. SHAYE Michael called [facility] to determine horne of Wheelchair Van vs. Cot for pt to transport from SNF to radiation. AMY and SHAYE Michael in to update pt's and pt about SNF prices and costs of Wheelchair Van vs. Cot. Dr. Fermin Burciaga, oncology, is present in pt's room as well. Pt's repeatedly states he needs to do his thing and then we can talk about placement. (He is referring to Dr. Burciaga.) SHAYE SHAW and AMY explained that Dr. Burciaga works with case management to determine treatment and continuity of care for pt and what the best options are for pt. SW provided pt's with list of private pay costs and [facility] costs for transportation. Pt's states I will need to review this and see about getting the money. Pt's constantly stated that this worker and CM are only wanting to take his money. SW and SHAYE SHAW states that this worker and CM won't be getting any of his money and that this worker and CM are just trying to provide all options to pt and for discharge planning. SHAYE Michael informed pt's that pt won't be able to stay in hospital as an inpatient just to get radiation treatment as this is an outpatient procedure. Pt's once again, referring to Dr. Burciaga that he needs to do his thing and then we can discuss placement. AMY and SHAYE SHAW left pt to figure out SNF placement and explained that the other options could be home with HHC or home with Palliative Care/Hospice. AMY placed a call to Anita at [facility] and provided Palliative Care Referral. AMY received call from Anita stating that she called pt's and he wants to hold off on conversation about Palliative Care/Hospice at this time and wait until [facility] before having the conversation. Plan: TBD SW to check back with pt and pt's to confirm discharge plans. Nadia Campos STATION ATTENDANT, FISHER NET
[2018-06-09 14:27] VITALS: BP 155/89; PULSE 75; RESP 18; TEMP 36.6; O2SAT 97
--- NOTE | 2018-06-09 14:35 | PCM.PN.HOSP ---
Patient Problems: Active and Suspected Problems Rectal carcinoma (Acute) Liver metastases (Acute) Brain metastases (Acute) Brain metastases (Acute) Subjective: More awake today but still nauseated Objective: General: Alert and oriented x3 HEENT: Atraumatic, Normocephalic Oral: Dry Mucosa Neck: Supple, No JVD Lungs: Clear to auscultation, Normal air movement, No rhonchi, No wheeze, No rales Cardiovascular: Regular rate, Regular Rhythm, Normal S1, Normal S2, No murmurs Abdomen: Soft, Non-Distended, No Hepato-splenomegaly, non-tender to palpation Vitals/I&O's: Vital Signs Temp Pulse Resp BP Pulse Ox 97.9 F 75 18 155/89 H 97 06/09/18 14:27 06/09/18 14:27 06/09/18 14:27 06/09/18 14:27 06/09/18 14:27 Oxygen Flow Rate (L/min) 2 Oxygen Delivery Method Room Air Weight: 267 lb 6.731 oz Body Mass Index (BMI) 43.1 Intake and Output for Last 24 Hours 06/07/18 06/08/18 06/09/18 23:59 23:59 23:59 Intake Total 1505 / 1505 2608 / 2608 Output Total 1050 / 1050 1125 / 1125 Balance 455 / 455 1483 / 1483 Laboratory Results 06/09/18 05:40: WBC 5.3, RBC 3.68 L, Hgb 10.1 L, Hct 31.9 L, MCV 86.7, MCH 27.4, MCHC 31.7 L, RDW 18.0 H, RDW Differential 56.4 H, Plt Count 316, MPV 9.7, Immature Gran % (Auto) 0.900, Neut % (Auto) 76.5 H, Lymph % (Auto) 16.7 L, Hill % (Auto) 5.9, Eos % (Auto) 0.0, Baso % (Auto) 0.0, Absolute Neuts (auto) 4.0, Absolute Lymphs (auto) 0.88, Total Counted Not Reportable 06/09/18 05:40: Sodium 141, Potassium 4.0, Chloride 104, Carbon Dioxide 27.0, Anion Gap 10, BUN 20 H, Creatinine 0.72, Estim Creat Clear Calc 81.67, Est GFR (MDRD) Af Amer 108, Est GFR (MDRD) Non-Af 89, BUN/Creatinine Ratio 27.9 H, Glucose 126 H, Calcium 9.2 Current Medications Dexamethasone Sodium Phosphate (Decadron) 4 mg IV Q6 [facility] Last Admin: 06/09/18 12:12 Dose: 4 mg Enoxaparin Sodium (Lovenox) 40 mg SC DAILY@0600 [facility] Last Admin: 06/09/18 05:58 Dose: 40 mg Hydromorphone HCl (Dilaudid Inj) 1 mg IV Q2H PRN PRN PRN Reason: SEVERE PAIN (6-07/28) Last Admin: 06/09/18 10:06 Dose: 1 mg Potassium Chloride/Dextrose/Sod Cl (Kcl 20meq In D5.45ns 1000ml) 1,000 mls @ 100 mls/hr IV .Q10H [facility] Last Admin: 06/09/18 09:34 Dose: 100 mls/hr Sodium Chloride () 250 mls @ 15 mls/hr IV .[id number] PRN PRN Reason: SALINE FLUSH Pantoprazole Sodium 40 mg/ (Sodium Chloride) 110 mls @ 330 mls/hr IV Q24 [facility] Last Admin: 06/09/18 10:04 Dose: 330 mls/hr Magnesium Hydroxide (Milk Of Magnesia) 30 ml PO DAILY PRN PRN PRN Reason: Constipation Ondansetron HCl (Zofran) 4 mg IV Q6H PRN PRN PRN Reason: NAUSEA Last Admin: 06/09/18 05:58 Dose: 4 mg Sodium Chloride () 5 - 30 ml IV UD PRN PRN Reason: SALINE FLUSH Last Admin: 06/09/18 12:12 Dose: 10 ml Medical Necessity - Tobacco Use Smoking Status: Never smoker Assessment/Plan All Active Problems Rectal bleed (Acute) Metastatic melanoma (Acute) Rectal carcinoma (Acute) Liver metastases (Acute) Brain metastases (Acute) Brain metastases (Acute) 1. 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 - She had chemo therapy up there in february and then it was found that her cancer had spread - She was discharged last after receiving a dose of immunoptherapy - She came in with abdominal pain that was thought to be pancreatitis based on her CT scan which had mild fat stranding surrounding the tail of the pancreas despite normal lipase - Bile ducts appear normal, and multiple chemotherapeutic agents pose the risk of pancreatitis - C/w IVF@100 VS are stable, she did get a bolus last night and a harris was placed for comfort - c/w decadron 4 mg IV q6 for brain mets with nausea - Dilaudid for pain - c/w zofran and compazine - Appreciate oncology recs - Radiation oncology discussed with the the option of total brain radiation to palliate some of the symptoms which he would like to try - I spent 65 minutes today discussing advance care planning. We discussed the incurability of this cancer and that comfort would be the best goal. He would like to proceed with whole brain radiation but acknowledges that he cannot take care of her home. She will need SNF which he will have to pay up front out-of pocket and he will also have to arrange his own transportation for her to get radiation 2. Gout - will hold her allopurinol for now 3. HTN/HLD - hold her lisinopril, HCTZ and simvastatin - All three can cause pancreatitis with simvastatin being the most likely DVT: Lovenox Diet: NPO Code: FULL Dispo: Possible DC in the am to SNF Code Visit Inpatient E&M: 97477 Subs Hosp L2 Procedures: 31598 Advncd Care Plan 30 Min
--- NOTE | 2018-06-09 14:40 | CASEMGMT ---
Social Work Note SHAYE Ramos updated this worker that Dr. Hernandez wants pt and pt's to talk to Palliative Care/Hospice today and that pt's is agreeable. AMY placed a call to [facility] and spoke with Rose Marie. Rose Marie states that she can have Anita at [facility] at 3:30pm to talk with pt about Palliative Care. AMY updated SHAYE Ramos of this and updated pt's of this. AMY received call from Avani at [facility] stating that she is able to accept pt and that she is willing to only have pt pay 14 days up front instead of a month in advance as most fci require. AMY and SHAYE Michael attempted to update pt's of this but pt's not in pt's room at this time. Plan: Palliative Care to meet with pt and pt's Nadia Campos MEDICAL VIDEOGRAPHER, PLANT SPRAYER
--- NOTE | 2018-06-09 15:30 | CASEMGMT ---
Social Work Note Anita from [facility] here to talk with pt and pt's about Palliative Care. Pt's not at [facility] and pt currently off floor for CT Scan. Anita states that she will wait and try to talk to pt after CT Scan. Nadia Campos MOTION STUDY TECHNICIAN, PAYING TELLER
--- NOTE | 2018-06-09 16:32 | CASEMGMT ---
Social Work Note Anita from [facility] informed this worker that pt is back from CT scan and pt's parents are present in room but pt's is not present. Anita states that she called the pt's and the pt's informed her that he left [facility] around 3:30pm when pt went down to CT scan and he is currently at home and getting dressed and is unable to come to [facility] and the meeting will have to be rescheduled. SW updated Charge Nurse Izabel of this. Nadia Campos FOREIGN LANGUAGES PROFESSOR, PHYSICAL THERAPY TECHNICIAN
--- NOTE | 2018-06-09 16:35 | CASEMGMT ---
Social Work Note AMY received call from Makeda at [facility] and she states that she is able to accept pt and will require pt to pay month in advance for placement. Makeda states that daily rates are $190. AMY will update pt and pt's of this information tomorrow as pt's is not present at [facility] and this worker is leaving for the day. If pt is not at [facility] tomorrow morning this worker will call pt's to confirm discharge plans. Nadia Campos SCHEDULE SUPERVISOR, MARINE ENGINE MACHINIST APPRENTICE
--- NOTE | 2018-06-09 17:09 | RAO.INPT.CON ---
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 She presented to the emergency room 06/07/2018 with abdominal pain, nausea/vomiting, generalized weakness, and altered mental status. History of Present Illness: Patient presented with a history of about 6 months of rectal pain and bleeding. CT scan and physical exam demonstrated a 6 cm ulcerated mass extending from the anal verge into the rectum with wall thickening and edema involving the anus and distal rectum with perirectal lymph nodes, right inguinal lymphadenopathy, multiple solid pulmonary nodules in the bilateral lungs 03/05/2018: Biopsy of the anal/rectal lesion was consistent with malignant melanoma involving colonic mucosa, BRAF and NRAS wild type. 03/12/18-04/09/18: Treated with carboplatin AUC 6 and paclitaxel to 25 mg/m? 05/03/2018: CT demonstrated disease progression within the liver 05/10/2018: Patient was diagnosed with IgA nephropathy 05/21/2018: Patient was initiated on ipilimumab/nivolumab at [facility]. 05/30/2018: MRI brain was completed which demonstrated evidence for numerous brain parenchyma metastases with the largest mass involving the left cerebellar hemisphere and measures 2.5 x 2 cm with the other masses ranging in size from 1-2 mm to approximately 1.3 cm. Given the large number of lesions these the radiation radiologist mentioned that he would not enumerate them. There was noted to be no obstructive hydrocephalus or gross brain shift. 05/28/2018: Patient presented to the emergency room with symptoms of headache, nausea, blurry vision and there is concern that she had pituitary inflammation. At this time she also complained of small amounts of bright red blood per rectum. 05/28/2018: CT brain was completed due to headache which demonstrated. Numerous hyperdense metastases throughout the brain consistent with metastatic melanoma with little if any significant edema or mass-effect. There is no evidence for shift or herniation. The largest lesion is present in the left cerebellum measures 2.7 cm, with the largest cerebral metastasis being 1.6 cm in the right frontal lobe. 06/07/2018: Patient presented to the emergency room with nausea, vomiting, and diarrhea. At this time she denied blood in her stool or emesis but does also have generalized weakness, diffuse abdominal pain. 06/07/2018: CT abdomen pelvis without contrast demonstrated diffuse enlargement of the pancreas with yoana-pancreatic edema suggesting acute pancreatitis. Multiple hypoattenuation lesions are seen in the liver having a nonspecific appearance with the largest measuring about 4 cm suggesting metastatic lesions. There is a soft tissue mass in the right of the rectum measuring 3 cm in diameter which may resent rectal neoplasm. No other abnormal allergies are noted. Radiation Treatment History: Denies having any previous history of receiving radiation therapy. Denies having a pacemaker or diagnosis of collagen vascular disease. Interval History: Patient was seen and evaluated in the hospital room. Patient was very sleepy and somewhat lethargic and much of the history was gained from her and other family members as well as some information from the patient. They stated that her severe abdominal pain started a few days before coming to the emergency room and that she has had progressive increase in headaches and nausea/vomiting. They also mentioned that she has had some difficulty with ambulation with stumbling but did not notice any other changes in coordination. The patient was previously able to take care of her daily needs but has declined significantly over the last week or so. Pain is improved significantly with inpatient pain medication including Dilaudid. Family also states that she is more sleepy and out of it. Steroids were started last night and she has not noticed any significant improvement in mental status, nausea, or headaches. She denies having any rectal pain or bleeding while in the hospital. Abdominal pain is described as being very severe and stretches across the entire upper abdomen, there was no other associated symptoms or radiation of the pain. Past Medical History (Chronic Problems): Chronic Problems Essential (primary) hypertension (Chronic) Dyslipidemia (Chronic) Gout (Chronic) BMI 45.0-49.9, adult (Chronic) Metastatic melanoma (Chronic) IgA nephropathy (Chronic) Allergies amoxicillin Allergy (Verified 06/07/18 20:11) Nausea Penicillins Allergy (Verified 06/07/18 19:48) Rash Home Medications: Ambulatory Orders Medication Instructions Recorded Allopurinol [Zyloprim] 300 mg PO DAILY 02/22/18 Cholecalciferol (Vitamin D3) 3,000 unit PO DAILY 02/22/18 [Vitamin D3] Hydrochlorothiazide [Hctz] 25 mg PO DAILY 02/22/18 Lisinopril [Zestril] 20 mg PO BID 02/22/18 Simvastatin [Zocor] 20 mg PO QHS 02/22/18 Docusate Sodium [Colace] 200 mg PO QHS 05/28/18 Gabapentin [Neurontin] 900 mg PO QHS 05/28/18 Magnesium Oxide [Mag-Ox 400] 400 mg PO BID 05/28/18 Multivitamin [Daily Multiple 1 each PO DAILY 05/28/18 Vitamin] Ondansetron [Zofran] 8 mg PO Q6H PRN PRN 05/28/18 I have reviewed the medical, surgical, and other pertinent history in details and have updated medication and allergy information in the electronic medical record. Review of Systems: A 12-point review of systems was completed and was negative except for above in interval history. Height/Weight/BMI: Height: 5 ft 6 in Weight: 121.3 kg BMI: Vital Signs Height 5 ft 6 in Weight: 121.3 kg Weight in Pounds 267.4 lbs Pulse Ox 97 Temperature 97.9 F Pulse Rate 75 Respiratory Rate 18 Blood Pressure 155/89 Blood Pressure Position Semi-Fowlers Physical Exam: ECO-4 CONSTITUTIONAL: Well-developed, obese. Dozing during conversation but arousable. Follows commands NECK: Supple,with no thyromegaly, and non-tender. Trachea midline. No cervical or supraclavicular adenopathy noted. CARDIAC: Regular rate and rhythm. Normal S1, S2. No murmurs, rubs, or gallops. PULMONARY/CHEST: Lungs are clear to auscultation and percussion bilaterally. No wheezes, rhonchi, or crackles noted. No increased work of breathing. ABDOMINAL: Abdomen soft, mild tenderness with palpation. No guarding or rebound. Abdominal bruising noted across the entire abdomen from previous heparin shots. Bowel sounds appropriate. BACK: Not examined EXTREMITIES: Range of motion appears intact in all 4 extremities, with normal strength equally and symmetrically. SKIN: Skin is warm and dry. No rashes or lesions evident. Abdominal bruising noted NEUROLOGICAL EXAM: Tired but arousable, oriented ?2. Cranial nerves II through XII are grossly intact. Nystagmus with right-sided gaze. Slow finger to nose with mild dysmetria, but difficult to examine. Follows commands well when prompted. There is no upper or lower extremity sensory deficit or motor deficit. Muscle strength is 5/5 in all muscle groups. Gait and posture not tested. PSYCHIATRIC: Difficult to ascertain if patient has enough insight to the clinical situation. 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 She presented to the emergency room 06/07/2018 with abdominal pain, nausea/vomiting, generalized weakness, and altered mental status. Clinically the patient is doing very poorly and performance status has drastically reduced in the last week or less. Patient was recently started on dual immunotherapy and recently developed severe abdominal pain with CT scan demonstrating possible evidence for pancreatitis but lipase normal. No clear causes for abdominal pain or for altered mental status have been established. There is no evidence for metabolic cause or infection. I reviewed the imaging findings including the CT abdomen and pelvis as well as the outside brain MRI and recent CT head. Essentially these scans demonstrate worsening of metastatic disease including multifocal liver involvement and very severe innumerable metastatic disease throughout the brain with the largest lesion being less than 3 cm and no evidence for midline shift, edema, or hydrocephalus. After reviewing the imaging findings I had a very detailed discussion with the patient, the patient's , and other family members regarding potential management options. I explained that given her reduction in performance status and declining health that she will not be able to continue systemic therapy at this time. I also very clearly discussed that any treatment options are for palliation and would not offer possible cure. I explained that given the imaging findings and symptoms that it is likely her headaches, nausea/vomiting and potentially altered mental status are a result of the innumerable metastatic brain lesions. She was started on high-dose Decadron nearly 24 hours ago but has showed no real improvement yet. I reviewed potential active treatment options of completing whole brain radiation therapy as an effort to provide palliation for her current symptoms. I also discussed options for enrolling in hospice care with goals of focusing on quality of life and comfort. Goals of whole brain radiation therapy were extensively discussed and would include symptom palliation and specifically would not include improving overall survival and would likely not include enough improvement to continue systemic therapy in the future. I also thoroughly discussed that this active treatment comes with potential toxicities. I reviewed the logistics of whole brain radiation therapy to include CT simulation, treatment planning, and daily fractionated radiation for 10 treatments. The potential acute and chronic toxicities were discussed and include but are not limited to fatigue, scalp irritation, alopecia, nausea/vomiting, headache, otitis media, dry mouth, neurocognitive decline, and rare risk of permanent nerve damage and/or radiation necrosis. Furthermore she received dual immune therapy approximately 3 weeks ago and there is always possibility for overlapping toxicities as combined radiation and immunotherapy is still being studied and safety is not confirmed. Following our discussion the patient and family decided that they would like to pursue palliative whole brain radiation therapy as an attempt to improve current quality of life and symptoms. CT simulation was completed without difficulty today and we are planning to initiate whole brain radiation therapy on 06/10/2018. If there is further decline from her current status during treatment then I recommend that we pursue hospice care, and I do believe that a hospice consultation is very reasonable as hospice would be appropriate following treatment. Discharge plans are currently unknown but she will need to be discharged to an extended care facility and social workers are trying to ensure that she will have transportation to treatment. Recommended continuing Decadron at least 4 mg 3 times daily if discharged. Thank you for allowing me to participate in the management and care of your patient. If I may answer any questions in the interim, please do not hesitate to contact me at any time. Fermin Mercedes DO, MS Public Health Epidemiologist, Department of Radiation Oncology [facility]
[2018-06-09 17:17] VITALS: PULSE 70
[2018-06-09 23:35] VITALS: BP 143/98; PULSE 74; RESP 16; TEMP 36.5; O2SAT 92
[2018-06-10 06:45] VITALS: BP 147/109; PULSE 79; RESP 18; TEMP 36.9; O2SAT 95
[2018-06-10] MEDS: Enoxaparin 40 MG/0.4 ML Syringe SC (06:52)
[2018-06-10] MEDS: Ondansetron 4 MG/2 ML Vial IV ×3 (07:05→21:49)
[2018-06-10] MEDS: 0.9% NaCl Peripheral Flush Adult/Peds IV ×4 (07:05→23:25)
--- NOTE | 2018-06-10 09:18 | CASEMGMT ---
Addendum entered by Nadia Campos 06/10/18 10:31: AMY attempted to once again see if pt's present in room, pt's is not in room and pt is sleeping. SW attempted to call pt's but no answer. SW left message for to give this worker a call back to confirm discharge plans. AMY received call from Rose Marie at [facility] wanting to reschedule pre-admit meeting with pt and pt's . AMY placed a call back to Rose Marie and informed her that pt is scheduled to get radiation treatment today at 11:00pm. AMY informed Rose Marie that this worker hasn't seen pt's today and that this worker attempted to call pt's with no answer. Rose Marie states that she has also tried to call pt's with no answer and hasn't received a call back yet. Rose Marie states that Lesli is the only pre-admit staff available today and she is booked for the day so the Palliative Care meeting may have to be tomorrow. AMY informed Rose Marie that pt will most likely be at [facility] today and possibly discharge tomorrow to long-term. Rose Marie states understanding. Original Note: Social Work Note SW attempted to meet with pt and pt's to confirm discharge plans. Pt's not present in room at this time. Pt is scheduled to get radiation treatment today at 11:00pm. Per Dr. Velasco, pt's hasn't selected a long-term yet. SW to follow up with pt's once he returns to [facility] or will give him a call. Plan: Discharge to long-term once pt's picks a facility Nadia Campos FOOD AND NUTRITION SERVICES ASSISTANT, MACHINE SETTER SUPERVISOR
[2018-06-10 09:22] VITALS: BP 147/84; PULSE 77; RESP 20; TEMP 36.4; O2SAT 100
--- NOTE | 2018-06-10 13:06 | PCM.PN.HOSP ---
Patient Problems: Active and Suspected Problems Rectal carcinoma (Acute) Liver metastases (Acute) Brain metastases (Acute) Brain metastases (Acute) Subjective: She was out of bed this morning and in the chair. She was more alert and communicative. Objective: General: Alert and oriented x3 HEENT: Atraumatic, Normocephalic Oral: Dry Mucosa Neck: Supple, No JVD Lungs: Clear to auscultation, Normal air movement, No rhonchi, No wheeze, No rales Cardiovascular: Regular rate, Regular Rhythm, Normal S1, Normal S2, No murmurs Abdomen: Soft, Non-Distended, No Hepato-splenomegaly, non-tender to palpation Vitals/I&O's: Vital Signs Temp Pulse Resp BP Pulse Ox 97.5 F L 77 20 H 147/84 H 100 06/10/18 09:22 06/10/18 09:22 06/10/18 09:22 06/10/18 09:22 06/10/18 09:22 Oxygen Flow Rate (L/min) 2 Oxygen Delivery Method Room Air Weight: 267 lb 6.731 oz Body Mass Index (BMI) 43.1 Intake and Output for Last 24 Hours 06/08/18 06/09/18 06/10/18 23:59 23:59 23:59 Intake Total 1505 / 1505 3654 / 3654 1408 / 1408 Output Total 1050 / 1050 2100 / 2100 1900 / 1900 Balance 455 / 455 1554 / 1554 -492 / -492 Current Medications Dexamethasone Sodium Phosphate (Decadron) 4 mg IV Q6 [facility] Last Admin: 06/10/18 11:28 Dose: 4 mg Enoxaparin Sodium (Lovenox) 40 mg SC DAILY@0600 [facility] Last Admin: 06/10/18 06:52 Dose: 40 mg Hydromorphone HCl (Dilaudid Inj) 1 mg IV Q2H PRN PRN PRN Reason: SEVERE PAIN (6-10/10) Last Admin: 06/09/18 23:42 Dose: 1 mg Potassium Chloride/Dextrose/Sod Cl (Kcl 20meq In D5.45ns 1000ml) 1,000 mls @ 100 mls/hr IV .Q10H [facility] Last Admin: 06/10/18 07:10 Dose: 100 mls/hr Sodium Chloride () 250 mls @ 15 mls/hr IV .[id number] PRN PRN Reason: SALINE FLUSH Pantoprazole Sodium 40 mg/ (Sodium Chloride) 110 mls @ 330 mls/hr IV Q24 [facility] Last Admin: 06/10/18 09:24 Dose: 330 mls/hr Magnesium Hydroxide (Milk Of Magnesia) 30 ml PO DAILY PRN PRN PRN Reason: Constipation Nutritional Formula (Lactose Free) (Ensure Clear) 120 ml PO TIDCM [facility] Last Admin: 06/10/18 11:27 Dose: Not Given Ondansetron HCl (Zofran) 4 mg IV Q6H PRN PRN PRN Reason: NAUSEA Last Admin: 06/10/18 07:05 Dose: 4 mg Sodium Chloride () 5 - 30 ml IV UD PRN PRN Reason: SALINE FLUSH Last Admin: 06/10/18 07:05 Dose: 10 ml Medical Necessity - Tobacco Use Smoking Status: Never smoker Assessment/Plan All Active Problems Rectal bleed (Acute) Metastatic melanoma (Acute) Rectal carcinoma (Acute) Liver metastases (Acute) Brain metastases (Acute) Brain metastases (Acute) 1. Metastatic melanoma to the liver and brain/nausea and vomiting/acute pancreatitis - Her cancer care has mostly been at the [facility] - She had chemo therapy up there in february and then it was found that her cancer had spread - She was discharged last after receiving a dose of immunoptherapy - She came in with abdominal pain that was thought to be pancreatitis based on her CT scan which had mild fat stranding surrounding the tail of the pancreas despite normal lipase - Bile ducts appear normal, and multiple chemotherapeutic agents pose the risk of pancreatitis - C/w IVF@100 VS are stable, harris in place - c/w decadron 4 mg IV q6 for brain mets with nausea, can plan to discharge on 4 mg q8 PO - Dilaudid for pain - c/w zofran and compazine - Appreciate oncology recs - Radiation oncology discussed with the the option of total brain radiation to palliate some of the symptoms which he would like to try - She is to have her first round of radiation today 2. Gout - c/w allopurinol 3. HTN/HLD - restart lisinopril and HCTZ - hold simvastatin - All three can cause pancreatitis with simvastatin being the most likely DVT: Lovenox Diet: NPO Code: FULL Dispo: Possible DC in the am to SNF Code Visit Inpatient E&M: 13481 Subs Hosp L2
[2018-06-10 15:20] VITALS: BP 153/73; PULSE 79; RESP 18; TEMP 36.6; O2SAT 95
[2018-06-10 21:45] VITALS: BP 152/99; PULSE 76; RESP 18; TEMP 36.8; O2SAT 97
[2018-06-10] MEDS: Lisinopril 20 MG Tablet PO (21:49)
[2018-06-11 03:42] VITALS: BP 142/95; PULSE 65; RESP 18; TEMP 36.5; O2SAT 95
[2018-06-11] MEDS: Ondansetron 4 MG/2 ML Vial IV ×3 (03:51→16:45)
[2018-06-11] MEDS: 0.9% NaCl Peripheral Flush Adult/Peds IV ×3 (03:51→11:33)
[2018-06-11] MEDS: Enoxaparin 40 MG/0.4 ML Syringe SC (05:09)
[2018-06-11] MEDS: HYDROmorphone 1 MG/ML Syringe IV (08:27)
[2018-06-11 08:31] VITALS: BP 153/106; PULSE 71; RESP 16; TEMP 36.6; O2SAT 97
[2018-06-11] MEDS: hydroCHLOROthiazide 25 MG Tablet PO (09:18)
[2018-06-11] MEDS: Allopurinol 300 MG Tablet PO (09:18)
[2018-06-11] MEDS: Lisinopril 20 MG Tablet PO (09:18)
--- NOTE | 2018-06-11 10:32 | PCM.PN.HOSP ---
Patient Problems: Active and Suspected Problems Rectal carcinoma (Acute) Liver metastases (Acute) Brain metastases (Acute) Brain metastases (Acute) Subjective: Still with nausea but was able to have a discussion with her today, pain is controlled Vitals/I&O's: Vital Signs Temp Pulse Resp BP Pulse Ox 97.8 F 71 16 153/106 H 97 06/11/18 08:31 06/11/18 08:31 06/11/18 08:31 06/11/18 08:31 06/11/18 08:31 Oxygen Flow Rate (L/min) 2 Oxygen Delivery Method Room Air Weight: 267 lb 6.731 oz Body Mass Index (BMI) 43.1 Intake and Output for Last 24 Hours 06/09/18 06/10/18 06/11/18 23:59 23:59 23:59 Intake Total 3654 / 3654 2281 / 2281 668 / 668 Output Total 2100 / 2100 3000 / 3000 1450 / 1450 Balance 1554 / 1554 -719 / -719 -782 / -782 General: Alert, Oriented x3, No apparent distress HEENT: Atraumatic, EOMI, Normocephalic Oral: Moist Mucosa Neck: Supple, No JVD Lungs: Clear to auscultation, Normal air movement, No rhonchi, No wheeze, No rales Cardiovascular: Regular rate, Regular Rhythm, Normal S1, Normal S2, No murmurs Abdomen: Soft, Non Tender, Non-Distended, No Hepato-splenomegaly Extremities: No edema Skin: No rashes, No breakdown Psych/Mental Status: Normal Affect, Depressed Current Medications Allopurinol (Zyloprim) 300 mg PO DAILY [facility] Last Admin: 06/11/18 09:18 Dose: 300 mg Dexamethasone Sodium Phosphate (Decadron) 4 mg IV Q6 [facility] Last Admin: 06/11/18 05:09 Dose: 4 mg Enoxaparin Sodium (Lovenox) 40 mg SC DAILY@0600 [facility] Last Admin: 06/11/18 05:09 Dose: 40 mg Hydrochlorothiazide (Hctz) 25 mg PO DAILY [facility] Last Admin: 06/11/18 09:18 Dose: 25 mg Hydromorphone HCl (Dilaudid Inj) 1 mg IV Q2H PRN PRN PRN Reason: SEVERE PAIN (6-10/10) Last Admin: 06/11/18 08:27 Dose: 1 mg Potassium Chloride/Dextrose/Sod Cl (Kcl 20meq In D5.45ns 1000ml) 1,000 mls @ 100 mls/hr IV .Q10H [facility] Last Admin: 06/11/18 08:25 Dose: 100 mls/hr Sodium Chloride () 250 mls @ 15 mls/hr IV .[id number] PRN PRN Reason: SALINE FLUSH Pantoprazole Sodium 40 mg/ (Sodium Chloride) 110 mls @ 330 mls/hr IV Q24 [facility] Last Admin: 06/11/18 09:18 Dose: 330 mls/hr Lisinopril (Zestril) 20 mg PO BID [facility] Last Admin: 06/11/18 09:18 Dose: 20 mg Magnesium Hydroxide (Milk Of Magnesia) 30 ml PO DAILY PRN PRN PRN Reason: Constipation Nutritional Formula (Lactose Free) (Ensure Clear) 120 ml PO TIDCM [facility] Last Admin: 06/11/18 09:18 Dose: 120 ml Ondansetron HCl (Zofran) 4 mg IV Q6H PRN PRN PRN Reason: NAUSEA Last Admin: 06/11/18 03:51 Dose: 4 mg Sodium Chloride () 5 - 30 ml IV UD PRN PRN Reason: SALINE FLUSH Last Admin: 06/11/18 05:09 Dose: 10 ml Medical Necessity - Tobacco Use Smoking Status: Never smoker Assessment/Plan All Active Problems Rectal bleed (Acute) Metastatic melanoma (Acute) Rectal carcinoma (Acute) Liver metastases (Acute) Brain metastases (Acute) Brain metastases (Acute) 1. Metastatic melanoma to the liver and brain/nausea and vomiting/acute pancreatitis - [facility] - She had chemo therapy up there in february and then it was found that her cancer had spread - She was discharged last after receiving a dose of immunoptherapy - She came in with abdominal pain that was thought to be pancreatitis based on her CT scan which had mild fat stranding surrounding the tail of the pancreas despite normal lipase - Bile ducts appear normal, and multiple chemotherapeutic agents pose the risk of pancreatitis - C/w IVF@100 VS are stable, harris in place - c/w decadron 4 mg IV q6 for brain mets with nausea, can plan to discharge on 4 mg q8 PO, protonix for GI prophylaxis - Holgerid for pain - c/w zofran and compazine - Appreciate oncology recs - Radiation oncology discussed with the the option of total brain radiation to palliate some of the symptoms which he would like to try - She had her first round of radiation on 06/10 - Was able to discuss advance care planning with her in the room without her . She would like to go hospice but she wants to talk with her first 2. Gout - c/w allopurinol 3. HTN/HLD - restart lisinopril and HCTZ - hold simvastatin - All three can cause pancreatitis with simvastatin being the most likely DVT: Lovenox Diet: NPO Code: FULL Dispo: pending Code Visit Inpatient E&M: 69363 Subs Hosp L2
[2018-06-11 11:35] VITALS: BP 138/88; PULSE 64; RESP 16; TEMP 36.3; O2SAT 95
--- NOTE | 2018-06-11 11:35 | NURSING ---
PT TO RADIATION
--- NOTE | 2018-06-11 12:22 | NURSING ---
pt returned from radiation. family at bedside.
[2018-06-11 14:15] VITALS: BP 152/102; PULSE 63; RESP 16; TEMP 36.3; O2SAT 96
--- NOTE | 2018-06-11 14:40 | PCM.TXEXTCAR ---
- Diet 06/08/18 20:02 Diet: Clear Liquid Is pt able to select menu?: Yes - Allergies/Procedures Done in Hospital Allergies/Adverse Reactions: Allergies amoxicillin Allergy (Verified 06/08/18 01:04) Nausea Penicillins Allergy (Verified 06/08/18 01:04) Rash - Type of Care/Length of Stay Estimated LOS: Convalescent Care Less Than 30 days Type of Care Needed: Skilled Rehab Potential: None Prognosis: Poor - Additional Orders/Day of Discharge Day of Discharge: 06/11/18 - Dietary and Speech Recommendations Dietitian Recommendations/Changes: Suggest advance diet as tolerated to low fat/no gastric stimulant. - Follow Up Care Primary Care Physician: Mehul Powers MD [Primary Care Provider] -
--- NOTE | 2018-06-11 14:41 | PCM.DC.SUM ---
Discharge Date and Diagnosis - Problem List Patient Problems: Active and Suspected Problems Rectal carcinoma (Acute) Liver metastases (Acute) Brain metastases (Acute) Brain metastases (Acute) Date of Admission: 06/08/18 Date of Discharge: 06/11/18 - Primary Discharge Diagnosis Active and Suspected Problems Rectal carcinoma (Acute) Liver metastases (Acute) Brain metastases (Acute) Brain metastases (Acute) - Secondary Discharge Diagnosis Chronic Problems Essential (primary) hypertension (Chronic) Dyslipidemia (Chronic) Gout (Chronic) BMI 45.0-49.9, adult (Chronic) IgA nephropathy (Chronic) Hospital Course and Treatment Imaging Results: CT Abd/Pel: IMPRESSION: There is diffuse enlargement of the pancreas with yoana-pancreatic edema suggesting acute pancreatitis. Multiple hypoattenuation lesions are seen in liver have nonspecific appearance largest measures approximately 4 cm suggesting metastatic lesions. There is soft tissue mass to the right of the rectum measures 3 cm in diameter may represent a rectal neoplasm. Consults: Oncology Radiation Oncology Palliative Care Operations: None Procedures: None Summary of Care Provided: HPI: The patient is a 57 year old female patient with a significant history of rectal cancer with metastatic disease to liver and brain. She was diagnosed in late February and has had two treatments of chemotherapy the last one being 2 weeks ago. She has had poor appetite and weakness. She has had worsening abdominal pain today and came to ER for further evaluation. CT scan reveals a 3 cm rectal tumor with liver metastatic disease along with inflammation around her pancreas. Lipase is within normal limits. She does not want to go [facility] care unless absolutely necessary. She prefers to stay here for treatment and would like to have a local oncologist manage her care. Hospital Course: 1. 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 - She had chemo therapy up there in february and then it was found that her cancer had spread - She was discharged last after receiving a dose of immunoptherapy - She came in with abdominal pain that was thought to be pancreatitis based on her CT scan which had mild fat stranding surrounding the tail of the pancreas despite normal lipase - Bile ducts appear normal, and multiple chemotherapeutic agents pose the risk of pancreatitis - C/w IVF@100 VS are stable, harris in place - c/w decadron 4 mg IV q6 for brain mets with nausea, can plan to discharge on 4 mg q8 PO, protonix for GI prophylaxis - Will transtion to Morphine solution for pain control - c/w zofran - Appreciate oncology recs - Radiation oncology discussed with the the option of total brain radiation to palliate some of the symptoms which he would like to try - She had her first round of radiation on 06/10 - Was able to discuss advance care planning with her in the room without her . She would like to go hospice but she wants to talk with her first 2. Gout - c/w allopurinol 3. HTN/HLD - restart lisinopril and HCTZ - hold simvastatin - All three can cause pancreatitis with simvastatin being the most likely DVT: Lovenox Diet: As tolerated Code: FULL Dispo: pending Home Medications: Medications to take at Discharge Allopurinol [Zyloprim] 300 mg PO DAILY 02/22/18 Cholecalciferol (Vitamin D3) [Vitamin D3] 3,000 unit PO DAILY 02/22/18 Hydrochlorothiazide [Hctz] 25 mg PO DAILY 02/22/18 Lisinopril [Zestril] 20 mg PO BID 02/22/18 Simvastatin [Zocor] 20 mg PO QHS 02/22/18 Docusate Sodium [Colace] 200 mg PO QHS 05/28/18 Gabapentin [Neurontin] 900 mg PO QHS 05/28/18 Magnesium Oxide [Mag-Ox 400] 400 mg PO BID 05/28/18 Multivitamin [Daily Multiple Vitamin] 1 each PO DAILY 05/28/18 Dexamethasone [Decadron] 4 mg PO TIDCM #20 tab 06/11/18 Enoxaparin [Lovenox] 40 mg SC DAILY@0600 syringe 06/11/18 Ensure Clear 120 ml PO TIDCM liquid 06/11/18 Magnesium Hydroxide [Milk Of Magnesia] 30 ml PO DAILY PRN PRN udc 06/11/18 Ondansetron [Zofran Odt] 4 mg PO Q8H PRN PRN #20 tab 06/11/18 morphine solution (IR) [Roxanol (IR oral solution)] 5 mg PO Q4H PRN PRN #5 po.syringe 06/11/18 Following Prescrptions Were Given to Patient: morphine solution (IR) [Roxanol (IR oral solution)] 5 mg PO Q4H PRN PRN #5 po.syringe PRN Reason: Mod-Severe Pain (4-10/10) Ondansetron [Zofran Odt] 4 mg PO Q8H PRN PRN #20 tab PRN Reason: Nausea/Vomiting Dexamethasone [Decadron] 4 mg PO TIDCM #20 tab Other Amb Orders: RAD ONC: CT Sim [RAD.ONC.WOC] Location: None Selected Primary Care Physician: Mehul Powers MD [Primary Care Provider] - [facility] Minutes spent on discharge:: 35 Patient Condition:: Poor Medical Necessity - Tobacco Use Smoking Status: Never smoker Meaningful Use Info Meaningful Use Diagnoses (Choose all that apply): None applicable Code Visit Inpatient E&M: 23694 Disch Hosp
--- NOTE | 2018-06-11 15:23 | CASEMGMT ---
Social Work Note SW in to speak with pt and pt's confirming discharge plans. Pt's states that he has the finances ready for pt to discharge to [facility] today. SW informed pt's that this worker will set up transportation and can let pt's know transportation time. SW attempted to ask pt if she had mentioned being agreeable to Hospice to Dr. Velasco today. Pt unable to make eye contact with this worker and turned her head away and unable to provide answer to this worker. SW explained that since they signed for Palliative Care then pt could transition to Hospice when the family wants to. Pt's states understanding. SW updated Dr. Velasco of this. AMY faxed discharge paperwork to Avani at [facility] including transfer to extended care facility, signed medication list and scripts. Originals in SNF folder and copy on pt's chart. AMY set up transportation through [facility] via cot for 5:00pm. Transportation form on SNF folder and copy on pt's chart. AMY completed [facility] in [facility]. Original in SNF folder and copy on pt's chart. AMY updated RN Mami, Charge Nurse Aletha, pt and pt's on transportation time. AMY placed a call to Avani at [facility] and left her a message on transportation time. Plan: Pt to discharge to [facility] through [facility] via cot for 5:00pm. 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
== END 2018-06-11 17:06 | disposition skilled nursing facility (03) | DRG 54 ==
LOC: ED 20:38 → MS3 23:53
PROVIDERS: Admitting Provider Family Medicine; Emergency Provider Emergency Medicine; Family Provider Internal Medicine; PCP Internal Medicine; Visit Provider Family Medicine
DX: C79.31 Secondary malignant neoplasm of brain (principal); K85.90 Acute pancreatitis without necrosis or infection, unspecified; C78.7 Secondary malignant neoplasm of liver and intrahepatic bile duct; C21.8 Malignant neoplasm of overlapping sites of rectum, anus and anal canal; C78.00 Secondary malignant neoplasm of unspecified lung; N02.8 Recurrent and persistent hematuria with other morphologic changes; I10 Essential (primary) hypertension; E78.5 Hyperlipidemia, unspecified; M10.9 Gout, unspecified
CPT/HCPCS: 36415; 74176; 77014; 77280; 77290; 77295; 77300; 77334; 77336; 77412; 80048; 80053; 81001; 83690; 85025; 97802; 99285; J7030; P9612; A4216; J2405